=== PATIENT | male | born 1960 | race Caucasian/White ===

== ENCOUNTER 2019-08-24 13:30 | Outpatient (RCR) | payer OTHER, SELFPAY ==
--- NOTE | 2019-06-30 15:33 | PTOPEVAL ---
Thank you for referring this patient to [facility]. Please review, sign, date and return this plan of care CORI. Pt referred to therapy due to left shoulder pain and dysfunction. He requires additional skilled therapy to address impairments, provide skilled teaching and HEP. Recommend PT 2x/wk x 6 wk. I agree with and certify that the following plan of care is medically necessary. Referring Physician Date Attending Provider: PHYSICIAN NOT ON STAFF Referring Provider: ABIMBOLA Mckeon *PT Outpatient Evaluation Start: 06/30/19 14:27 Freq: Status: Active Protocol: Document 06/30/19 14:30 CAP (Rec: 06/30/19 15:12 [facility] [email or web address]) Therapy Assessment Status Assessment Status Assessment Status Evaluation Outpatient Past Medical History Cardiovascular History Hx Hypertension Yes Musculoskeletal History Hx Other Musculoskeletal Disorders Yes: left shoulder pain Endocrine History Hx Diabetes Yes: neuropathy feet HEENT History Hx Eye Surgery Yes: blind right eye, high pressure of left eye Psychosocial History Hx Anxiety Yes Hx Depression Yes Hx Other Psychiatric Disorders Yes: insomnia Pain History History of Any Previous or Ongoing No Significant History Instance of Pain Evaluation Information Problem Diagnosis left shoulder pain Onset 5-6 months Cause unknown Subjective Information Reports he has had increased Query Text:As Reported By Patient/ left shoulder pain for the Family past 5-6 months. Reports he sleeps on his left side with increased pain in the morning. He has increased pain of the wrist and elbow region, as well as the shoulder. Reports he feels like he has lump at the front of his elbow. Reports pain with wrist motion , which is helped by his magnetic braclett. He reports pain with left shoulder motion. States the pain is like a shocking pain . Reports difficulty with reaching act in all directions . States he has limited his activities due to his vision impairments, medical conditions. He walks his small dog daily. He has an exercise
--- NOTE | 2019-07-30 13:09 | PTOPEVAL ---
Thank you for referring Manolo Becerra to [facility]. Please review, sign, date and return this plan of care CORI. Pt has received 8 PT visits since 06/30/19 to address UE impairments, pain, limited UE range and strength. He is progressing towards his therapy goals and HEP. He requires additional skilled therapy 2x/wk x 3 wk to achieve max potential. I agree with and certify that the following plan of care is medically necessary. Referring Physician Date Attending Provider: PHYSICIAN NOT ON STAFF Referring Provider: Allison Mckeon *PT Outpatient Evaluation Start: 06/30/19 14:27 Freq: Status: Active Protocol: Document 07/30/19 11:01 MARGARITO (Rec: 07/30/19 11:22 [facility] [id number]) Therapy Assessment Status Assessment Status Assessment Status Re-evaluation Outpatient Past Medical History Cardiovascular History Hx Hypertension Yes Musculoskeletal History Hx Other Musculoskeletal Disorders Yes: left shoulder pain Endocrine History Hx Diabetes Yes: neuropathy feet HEENT History Hx Eye Surgery Yes: blind right eye, high pressure of left eye Psychosocial History Hx Anxiety Yes Hx Depression Yes Hx Other Psychiatric Disorders Yes: insomnia Pain History History of Any Previous or Ongoing No Significant History Instance of Pain Evaluation Information Problem Diagnosis left shoulder pain Onset 5-6 months Cause unknown Subjective Information Reports cont pain in the am Query Text:As Reported By Patient/ regardless of the his sleeping Family positions. Reports the radiating symptoms of left UE have improved. Improved tightness and lump of left elbow region. States intermittent of shocking pain of the shoulder with lateral reaching. Denies pain with reaching behind head , but slight pain with reaching behind back. Pain Assessment Timing of Pain Assessment Timing of Pain Assessment Re-assessment Pain Scale Pain Scale Used Numeric (1 - 10) Self Report Pain Assessment Left Shoulder(s) Reported Pain Level 0 Pain Description Aching,Sharp Pain Frequency Chronic,Intermittent Greatest Pain Intensity 5 Pain Aggravating Factors Prolonged Position Pain Score Pain Score 0: Self Report Upper Extremity Range of Motion Scapular/ Shoulder Range of Motion Right Scapular: Retraction Hypomobile
--- NOTE | 2019-08-24 14:11 | PTOPEVAL ---
Thank you for referring Manolo Becerra to [facility]. Please review, sign, date and return this plan of care CORI. Pt has received 13 therapy visits from 06/30/19-08/24/19 to address his left shoulder pain. He demonstrates normal shoulder strength and range. Denies any increased pain with daily activities. He reports 0% impairment on the Quick Dash. He is indep with HEP. DC skilled therapy at this time. I agree with and certify that the following plan of care is medically necessary. Referring Physician Date Referring Provider: ABIMBOLA Mckeon PT Discharge Summary *PT Outpatient Evaluation Start: 06/30/19 14:27 Freq: Status: Active Protocol: Document 08/24/19 13:33 MARGARITO (Rec: 08/24/19 13:47 [facility] [email or web address]) Therapy Assessment Status Assessment Status Assessment Status Re-evaluation Evaluation Information Problem Diagnosis left shoulder pain Onset 5-6 months Cause unknown Subjective Information He denies any pain or problems Query Text:As Reported By Patient/ with his left shoulder. Family Denies any numbness or tingling into the left UE/hand region. Denies any problems with use of left UE for daily activities. He reports his depression and anxiety is doing better. Pain Assessment Timing of Pain Assessment Timing of Pain Assessment Re-assessment Pain Scale Pain Scale Used Numeric (1 - 10) Self Report Pain Assessment Left Shoulder(s) Reported Pain Level 0 Pain Score Pain Score 0: Self Report Upper Extremity Range of Motion Scapular/ Shoulder Range of Motion Right Shoulder Flexion - Active 160 Shoulder Extension - Active 55 Shoulder Abduction - Active 165 Shoulder Medial Rotation - Active T 11 Query Text:Reach Behind the Back Shoulder Lateral Rotation - Active T2 Query Text:Reach Behind the Head Scapular/Shoulder Range of Motion Pain,Soft Tissue Restriction Limitations Scapular/Shoulder Range of Motion decreased inf Gh glide Comments decresed scapulothoracic movement Left Shoulder Flexion - Active 165 Shoulder Extension - Active 55 Shoulder Abduction - Active 168 Shoulder Medial Rotation - Active T 11 Query Text:Reach Behind the Back Shoulder Lateral Rotation - Active T2 Query Text:Reach Behind the Head Upper Extremity Muscle Strength Testing Scapular/Shoulder Left Shoulder Elevation - Upper Trapezius 5 Normal Scapular Retraction - Rhomboid 2+ Poor + Scapular Retraction - Middle Trapezius 2+ Poor + Shoulder Flexi
== END 2019-08-24 14:26 | disposition home or self-care (01) ==
LOC: ANHPT 13:30
DX: M25.519 Pain in unspecified shoulder (principal)
CPT/HCPCS: 97110; 97140; 97162

== ENCOUNTER 2020-07-11 17:23 | Emergency (ER) | payer OTHER, SELFPAY ==
--- NOTE | ~2020-07-11 | XR_ITS ---
EXAMINATION: XR chest 1V portable DATE: 07/11/2020 22:03 INDICATION: Leg edema. TECHNIQUE: A single frontal view of the chest was obtained. COMPARISON: None. FINDINGS: There is mild atelectasis in left lower lung zone. No pleural effusion or pneumothorax. The heart size is normal. IMPRESSION: 1. Mild atelectasis in left lower lung zone. Reviewed, dictated and finalized at location A.
[2020-07-11 18:03] VITALS: BP 214/87; PULSE 97; RESP 16; TEMP 36.6; O2SAT 97
[2020-07-11 18:18] LABS: Basophils Percent Auto 0.4 % (0.2-1.2); Eosinophils Absolute Auto 0.3 K/mm3 (0-0.3); Eosinophils Percent Auto 2.7 % (0-4.4); Hematocrit 39.2 % (42.0-52.0); Hemoglobin 13.1 g/dL (14.0-18.0); Immature Granulocyte Absolute 0.03 K/mm3 (0.00-0.031); Immature Granulocyte Percent A 0.3 % (0-0.5); Lymphocytes Absolute Auto 1.74 K/mm3 (0.9-3.2); Lymphocytes Percent Auto 17.3 % (18.3-44.2); Mean Corpuscular HGB Conc 33.4 g/dl (32-36); Mean Corpuscular Hemoglobin 29.8 pg (26-34); Mean Corpuscular Volume 89.1 fl (80-100); Mean Platelet Volume 9.4 fl (7.4-10.4); Monocytes Absolute Auto 0.8 K/mm3 (0.1-0.6); Neutrophils Absolute Auto 7.2 K/mm3 (1.3-6.7); Neutrophils Percent Auto 71.3 % (45.5-73.1); Platelet Count Result 272 k/mm3 (150-375); Red Cell Distribution Width 12.9 % (11.5-14.5)
[2020-07-11 18:32] LABS: Alanine Aminotransferase 30 U/L (4-50); Albumin Level 3.9 g/dL (3.5-5.1); Alkaline Phosphatase 60 U/L (38-126); Anion Gap 5 mmol/L (8-16); Aspartate Amino Transferase 32 U/L (17-59); Bilirubin,Total 0.2 mg/dL (0.2-1.3); Blood Urea Nitrogen 17 mg/dL (9-20); Calcium 8.8 mg/dL (8.4-10.2); Carbon Dioxide 28 mmol/L (22-30); Chloride 106 mmol/L (98-107); Estimated CRCL calculation 89 ml/min; Estimated Glomerular Filt Rate > 60; Glucose 107 mg/dL (75-110); Potassium 3.6 mmol/L (3.4-5.0); Sodium 139 mmol/L (137-145)
[2020-07-11 18:41] LABS: NT Pro B Type Natriuretic Pept 1070 PG/ML (5-100)
--- NOTE | 2020-07-11 21:38 | ED.GENADULT ---
HPI - General Adult General Chief complaint: Extremity Problem,Nontraumatic Stated complaint: LOWER EXTREMITY SWELLING Time Seen by Provider: 07/11/20 21:36 Source: patient and RN notes reviewed Mode of arrival: ambulatory Limitations: no limitations History of Present Illness HPI narrative: Patient is 59 years old white male presented to the ED because of swelling of the lower extremities for months. Was seen by his family physician today and was told that he have stage III leg edema. Patient denies any fever, chills, nausea, vomiting, shortness of breath, chest pain, back pain, headache. Patient does not work, sit on the couch / for years. Review of Systems Review of Systems: Narrative: CONSTITUTIONAL: Denies fever, chills, or sweats. EYES: Denies visual changes, redness, or discharge. ENT: Denies rhinorrhea, congestion, sore throat, or otalgia. CARDIOVASCULAR: Denies chest pain, palpitations, or edema. RESPIRATORY: Denies cough or dyspnea. GASTROINTESTINAL: Denies abdominal pain, nausea, vomiting, or diarrhea. GENITOURINARY: Denies dysuria or hematuria. SKIN: 3+ edema bilaterally MUSCULOSKELETAL: Denies back pain, joint pain, or myalgia. NEUROLOGIC: Denies headache, numbness, or weakness. PSYCHIATRIC: Denies anxiety or depression. Exam Narrative: Exam Narrative: General appearance: Well-developed, well-nourished Skin: Normal color, 2+ edema up to the knees bilaterally Head: Normocephalic, nontraumatic Eyes: Clear conjunctiva ENT: Oropharynx normal, ears normal, nose normal Neck: Supple, nontender Chest and respiratory: Airway patent, no respiratory distress, no accessory muscle use Heart: Regular rate/rhythm Abdomen: Soft, nontender, no organomegaly, quiet bowel sounds Vascular: Normal peripheral pulses, normal capillary refill. Musculoskeletal: Normal range of motion, nontender back Neurologic: Alert and oriented ?3, LOGISTICS LEAD is normal as tested, no gross motor deficit Course Course Emergency Course: Stable Vital Signs Vital signs: Vital Signs Temperature 36.6 C 07/11/20 18:03 Pulse Rate 97 07/11/20 18:03 Respiratory Rate 16 07/11/20 18:03 Blood Pressure 214/87 H 07/11/20 18:03 Pulse Oximetry 97 07/11/20 18:03 Temperature 36.6 C 07/11/20 18:03 Pulse Rate 97 07/11/20 18:03 Respiratory Rate 16 07/11/20 18:03 Blood Pressure 214/87 H 07/11/20 18:03 Pulse Oximetry 97 07/11/20 18:03 Medical Decision Making [facility] Narrative Medical decision making narrative: Patient presents with left lower extremity edema for months. Today is not different than 1 week ago, was seen by his family physician today. Patient came for a second opinion. Labs, chest x-ray ordered. Further plan to follow. Patient blood pressure is elevated on arrival to the emergency room, patient reported that he been keeping his leg elevated and using compression stocking intermittently. On exam patient does not have any compression stocking, last use months ago My plan to start patient on small dose of hydrochlorothiazide and to advise him to keep his leg elevated and use compression stocking constantly Differential Diagnosis Differential Diagnosis: CHF, liver failure, kidney failure, dependent edema, hypoproteinemia Vital Signs Vital Signs: Vital Signs Temperature 36.6 C 07/11/20 18:03 Pulse Rate 97 07/11/20 18:03 Respiratory Rate 16 07/11/20 18:03 Blood Pressure 214/87 H 07/11/20 18:03 Pulse Oximetry 97 07/11/20 18:03 Temperature 36.6 C 07/11/20 18:03 Pulse Rate 97 07/11/20 18:03 Respiratory Rate 16 07/11/20 18:03 Blood Pressure 214/87 H 07/11/20 18:03 Pulse Oximetry 97 07/11/20 18:03 Lab Data Result diagrams:
--- NOTE | 2020-07-11 21:52 | PC.NURSE ---
patient refusing to answer assessment questions or to have vital signs taken.
== END 2020-07-11 23:00 | disposition left against medical advice (07) ==
PROVIDERS: Family Medicine; Emergency Provider Emergency Medicine; PCP Emergency Medicine
DX: R60.0 Localized edema (principal)
CPT/HCPCS: 36415; 71045; 80053; 83880; 85025; 99283

== ENCOUNTER 2020-11-04 09:40 | Outpatient (CLI) | payer OTHER, SELFPAY ==
--- NOTE | ~2020-11-04 | CT_ITS ---
EXAMINATION: CT lung screening DATE: 11/04/2020 10:12 INDICATION: Personal history of nicotine dependence, prior smoker with 30 pack year history TECHNIQUE: Computed tomography (CT) of the chest was performed without intravenous contrast. The dose -length product (DLP) was 229.50 mGy-cm. Automated exposure control and iterative reconstruction tech [employer] were employed. COMPARISON: None FINDINGS: There is mild emphysema. No suspicious pulmonary nodule is identified. The lungs are free o f acute opacities. There is no pleural effusion or pneumothorax. No pathologically enlarged thoracic lymph nodes are identified. The heart size is normal. Calcified coronary artery atherosclerosis is no lex. There is mild thoracic spondylosis. Punctate calcifications in an otherwise normal spleen likely represent healed granulomatous disease. IMPRESSION: 1. Lung-RADS category 1: Negative. Continue annual screening with noncontrast low-dose chest CT in 12 months. Reviewed, dictated and finalized at location B. IMPRESSION: 1. Lung-RADS category 1: Negative. Continue annual screening with noncontrast l ow-dose chest CT in 12 months.
== END 2020-11-04 09:41 | disposition home or self-care (01) ==
PROVIDERS: PCP Emergency Medicine; Visit Provider Emergency Medicine
DX: Z12.2 Encounter for screening for malignant neoplasm of respiratory organs (principal); Z87.891 Personal history of nicotine dependence
CPT/HCPCS: 71271

== ENCOUNTER 2020-11-24 18:52 | Emergency (ER) | payer OTHER, SELFPAY ==
[2020-11-24 19:07] VITALS: BP 214/91; PULSE 78; RESP 20; TEMP 36.8; O2SAT 99
--- NOTE | 2020-11-24 19:19 | ED.EYEPROB ---
HPI - Eye Problem General Chief complaint: Eye Problems Stated complaint: Blisters on eye Time Seen by Provider: 11/24/20 19:19 Source: patient and RN notes reviewed Mode of arrival: ambulatory Limitations: no limitations History of Present Illness HPI Narrative: 60-year-old male presents with concern for right eye watering, discomfort, blisters . Reports he has been seeing an canvassing manager for quite some vision for this problem for the last several months, is being treated by that doctor for this problem. He reports he had a temporary lens placed in the right eye, and is concerned the lens may have come out. He reports he lost vision in his right eye months ago, which his canvassing manager is aware. He reports excessive watery drainage, redness, discomfort. He reports he symptoms have been present for several weeks. In a separate complaint he reports an itchy rash under his left armpit from using a body spray MD chief complaint: other (Eye blisters) Related Data Home Medications Medication Instructions Recorded Confirmed brimonidine 2 drp OPHTHALMIC (EYE) DIRECTED 11/24/20 11/24/20 dorzolamide-timolol 2 drp OPHTHALMIC (EYE) DIRECTED 11/24/20 11/24/20 ezetimibe 10 mg PO DAILY 11/24/20 11/24/20 hydrochlorothiazide 25 mg PO DAILY 11/24/20 11/24/20 insulin glargine [Lantus Solostar 18 unit SUBCUT DIRECTED 11/24/20 11/24/20 U-100 Insulin] losartan 100 mg PO DAILY 11/24/20 11/24/20 prednisolone acetate 1 drp OPHTHALMIC (EYE) DIRECTED 11/24/20 11/24/20 Allergies Allergy/AdvReac Type Severity Reaction Status Date / Time No Known Allergies Allergy Verified 11/24/20 19:14 Review of Systems Review of Systems: CONSTITUTIONAL: Denies malaise, chills, sweats, or fever. EYES: Denies new visual changes. Reports copious right eye watery drainage, irritation and redness ENT: Denies rhinorrhea, congestion, sinus pain, otalgia or sore throat. SKIN: Reports redness around the skin of both eyes. Also reports an itchy rash under his left armpit NEUROLOGIC: Denies headache. All systems reviewed & are unremarkable except as noted in HPI and below PMFSH Comments At time of signature, agree with nursing past medical, surgical, social and family history. There is no relevant family history pertinent to the presenting complaint Exam Narrative: GENERAL: Well-appearing, well-nourished, and in no acute distress. HEAD: Normocephalic, atraumatic. EYES: PERRLA. Conjunctivae and sclera injected bilaterally, excessive watery drainage in the right eye. No nystagmus. Mild conjunctive and sclera injection in the left eye ENT: Nares clear. Mucous membranes moist. NECK: Supple. CHEST: No respiratory distress. Speaks in full sentences. HEART: Regular rate and rhythm. SKIN: Warm, dry. Erythematous skin surrounding bilateral eyes. Patchy erythema in the left axilla NEURO: Alert and oriented x3. No focal deficits. PSYCH: Normal mood and affect Course Course Emergency Course: [place] with patient importance of continuance of care with his current canvassing manager for this problem, discussed following up tomorrow with the canvassing manager for treatment, will try a short course of steroids to help with inflammation. Patient is aware of, understands and agrees to treatment plan. Anticipatory guidance given. Patient agrees to follow-up as directed and is aware of reasons to seek care at the emergency department. Portions of this record may have been created with voice recognition software Vital Signs Vital signs: Vital Signs Temperature 98.3 F 11/24/20 19:07 Pulse Rate 78 11/24/20 19:07 Respiratory Rate 20 11/24/20 19:07 Blood Pressure 214/91 H 11/24/20 19:07 Pulse Oximetry 99 11/24/20 19:07 Temperature 98.3 F 11/24/20 19:07 Pulse Rate 78 11/24/20 19:07 Respiratory Rate 20 11/24/20 19:07 Blood Pressure 214/91 H 11/24/20 19:07 Pulse Oximetry 99 11/24/20 19:07 Reviewed. MDM - Eye Problem MDM Narrati
[2020-11-24] MEDS: predniSONE 20 MG TABLET 60 MG PO (19:32)
== END 2020-11-24 19:35 | disposition home or self-care (01) ==
PROVIDERS: Emergency Provider Nurse Practitioner; PCP Emergency Medicine
DX: H57.9 Unspecified disorder of eye and adnexa (principal); R21 Rash and other nonspecific skin eruption; I10 Essential (primary) hypertension; H40.9 Unspecified glaucoma
CPT/HCPCS: 99203; G0463; J7512

== ENCOUNTER 2021-03-21 14:45 | Outpatient (CLI) | payer OTHER, SELFPAY ==
--- NOTE | ~2021-03-21 | XR_ITS ---
EXAMINATION: XR chest 2V DATE: 03/21/2021 14:59 INDICATION: Cough TECHNIQUE: PA and lateral views of the chest were obtained. COMPARISON: Chest radiograph dated 07/11/[address] dated 11/04/2020 FINDINGS: Mild linear atelectasis at the bilateral lower lung zones. Bronchial wall thickening in the infrahila r regions. No pleural effusion or pneumothorax. The cardiomediastinal silhouette is normal. IMPRESSION: 1. Mild infrahilar bronchial wall thickening which could be seen with bronchitis or reactive airway d isease/asthma. Reviewed, dictated and finalized at location B. OROLOGIST LIAISON IMPRESSION: 1. Mild infrahilar bronchial wall thickening which could be seen with bronchiti s or reactive airway disease/asthma.
== END 2021-03-21 14:46 | disposition home or self-care (01) ==
LOC: ANHIMG 14:46
PROVIDERS: PCP Emergency Medicine; Visit Provider Emergency Medicine
DX: R05.9 Cough, unspecified (principal); R91.8 Other nonspecific abnormal finding of lung field
CPT/HCPCS: 71046

== ENCOUNTER 2021-04-19 08:33 | Outpatient (CLI) | payer OTHER, SELFPAY ==
--- NOTE | 2021-04-19 09:06 | ECHO_ITS ---
Patient Info Name: Manolo Becerra Age: 60 years : 1960 Gender: Male Ht: 71 in Wt: 245 lbs BSA: 2.40 m2 HR: 72 bpm BP: 216 / 111 mmHg Technical Quality: Good Exam Date: 04/19/2021 9:25 AM Exam Location: [facility] Patient Status: Outpatient Admit Date: 04/19/2021 Staff Ordering Physician: Shiraz Lerma DO New Home Sales Consultant: Ba García RDCS, RT Attending Provider: Shiraz Lerma DO Referring Physician: Florentin GOMEZ; Exam Type: CA echo doppler color flow Study Info Indications R06.00 - Dyspnea, unspecified Complete two-dimensional, color flow and Doppler transthoracic echocardiogram is performed. Strain analysis performed. Summary 1. Complete two-dimensional, color flow and Doppler transthoracic echocardiogram is performed. 2. Left ventricular chamber dimension is mildly enlarged. 3. Left ventricular systolic function is normal, estimated at 55-60%. 4. There is moderately increased left ventricular wall thickness. 5. The left ventricular diastolic function is grade I diastolic dysfunction. 6. E/e' 19 is elevated. 7. Global longitudinal strain is abnormal at -8.2%. 8. Left atrial chamber dimension is mildly enlarged. 9. There is mild aortic valve sclerosis. 10. The mitral valve has moderately calcified posterior annulus. 11. There is mild mitral valve regurgitation. 12. Dilated inferior vena cava with >50% collapse upon inspiration consistent with elevated right atrial pressure, 10 mmHg. Left Ventricle E/e' 19 is elevated. Global longitudinal strain is abnormal at -8.2%. Left ventricular chamber dimension is mildly enlarged. Left ventricular systolic function is normal, estimated at 55-60%. There is moderately increased left ventricular wall thickness. The left ventricular diastolic function is grade I diastolic dysfunction. Right Ventricle Right ventricular systolic function is normal and with normal TAPSE 2.2 cm. Right ventricular chamber dimension is normal. Left Atria Left atrial chamber dimension is mildly enlarged. Right Atria Right atrial chamber dimension is normal. Aortic Valve The aortic valve is trileaflet. There is mild aortic valve sclerosis. There is no aortic valve stenosis. There is no aortic valve regurgitation. Pulmonic Valve There is no pulmonic regurgitation. Mitral Valve The mitral valve has moderately calcified posterior annulus. There is no mitral valve stenosis. There is mild mitral valve regurgitation. Tricuspid Valve There is no tricuspid valve regurgitation. Pericardium/Pleural There is no pericardial effusion. Inferior Vena Cava Dilated inferior vena cava with >50% collapse upon inspiration consistent with elevated right atrial pressure, 10 mmHg. Aorta The aortic root size at the sinus of Valsalva is normal. Left Ventricular Outflow Tract Name Value Normal LVOT 2D LVOT Diameter 2.1 cm LVOT Doppler LVOT Peak Gradient 4 mmHg LVOT Mean Gradient 3 mmHg LVOT VTI 23 cm LVOT VTI/AV VTI Ratio 0.8 LVOT Randy
== END 2021-04-19 08:34 | disposition home or self-care (01) ==
PROVIDERS: PCP Emergency Medicine; Visit Provider Internal Medicine Cardiovascular Disease
DX: R06.00 Dyspnea, unspecified (principal); I34.0 Nonrheumatic mitral (valve) insufficiency
CPT/HCPCS: 93306

== ENCOUNTER 2022-04-06 07:25 | Emergency (ER) | payer OTHER, SELFPAY ==
[2022-04-06 07:35] VITALS: BP 186/84; PULSE 85; RESP 18; TEMP 36.4; O2SAT 100
--- NOTE | 2022-04-06 08:20 | ED.LOWEXIN ---
HPI - Extremity Injury (Lower) General Chief Complaint: Extremity Injury, Lower Stated Complaint: leg fatigue Time Seen by Provider: 04/06/22 07:34 History of Present Illness HPI Narrative: Patient is a 61-year-old male with a history of hypertension, hyperlipidemia, diabetes, tobacco use presenting with chronic leg pain. Patient states that he has had a lot of chronic leg pain for at least the last year. States that it is a burning pain that is worsened with exertion. States that his legs also feel very tired. States that he has saw a vascular surgeon earlier this year who did not offer any surgical intervention. Patient states that he recently saw his PCP who advised that he follow-up with a different vascular surgeon at [place]. States he has been unable to do so so far. 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 He states that the pain is unchanged from the last several months. He denies fevers, numbness or weakness, chest pain, shortness of breath, abdominal pain, nausea or vomiting, new leg swelling. Related Data Home Medications Medication Instructions Recorded Confirmed blood sugar diagnostic (OneTouch #10 ea 08/19/19 11/13/21 Ultra Blue Test Strip) glipizide 5 mg tablet 5 mg PO BID 08/19/19 11/13/21 lancets 30 gauge (TRUEplus Lancets) #25 ea 08/19/19 11/13/21 omega 4-cmk-tiv-fish oil 1,000 mg 1 cap PO BID 12/02/19 11/13/21 (120 mg-180 mg) capsule (Fish Oil) acetaminophen 500 mg capsule 500 mg PO Q6H PRN 05/12/20 11/13/21 brimonidine 0.2 % eye drops 1 drp EACH EYE Q8H 05/12/20 11/13/21 carvedilol 25 mg tablet 25 mg PO Q12H 05/12/20 11/13/21 cholecalciferol (vitamin D3) 1,250 1,250 mcg PO WEEKLY 05/12/20 11/13/21 mcg (50,000 unit) capsule ginkgo biloba 40 mg tablet 40 mg PO TID 05/12/20 11/13/21 brimonidine 0.2 % eye drops 2 drp ophthalmic (eye) DIRECTED 11/24/20 11/13/21 dorzolamide 22.3 mg-timolol 6.8 2 drp ophthalmic (eye) DIRECTED 11/24/20 11/13/21 mg/mL eye drops ezetimibe 10 mg tablet 10 mg PO DAILY 11/24/20 11/13/21 hydrochlorothiazide 25 mg tablet 25 mg PO DAILY 11/24/20 11/13/21 insulin glargine 100 unit/mL (3 18 unit subcut DIRECTED 11/24/20 11/13/21 mL) subcutaneous pen (Lantus Solostar U-100 Insulin) losartan 100 mg tablet 100 mg PO DAILY 11/24/20 11/13/21 prednisolone acetate 1 % eye 1 drp ophthalmic (eye) DIRECTED 11/24/20 11/13/21 drops,suspension Allergies Allergy/AdvReac Type Severity Reaction Status Date / Time No Known Allergies Allergy Verified 04/06/22 07:42 Review of Systems Review of Systems: All systems reviewed & are unremarkable except as noted in HPI and below PMFSH Past Medical History Medical History Anxiety Depression Diabetes mellitus Glaucoma Hyperlipidemia Hypertension Family History Family History Mother Diabetes mellitus Grandparent No problems noted. Social History Social History Smoking packs per day: 0.5 Smoking cigarettes per day: 10.0 Years smoked: 40 Smoking pack-years: 20.00 Smoking status: Current every day smoker Tobacco type: cigarettes Second hand tobacco smoke exposure: Yes Alcohol intake: never Substance use: never Exam Narrative: GENERAL: Well-appearing, well-nourished, and in no acute distress. HEAD: Normocephalic, atraumatic. EYES: PERRLA and EOMI. ENT: Nares clear, no rhinorrhea or epistaxis. Mucous membranes moist. NECK: Supple. CHEST: Clear to auscultation. No respiratory distress. HEART: Regular rate and rhythm. No murmur heard. Normal peripheral pulses. ABDOMEN: Soft, nontender, nondistended, normal active bowel sounds. EXTREM
--- NOTE | 2022-04-06 08:33 | PC.NURSE ---
pt ambulatory without difficulty to and from restroom.
== END 2022-04-06 08:40 | disposition home or self-care (01) ==
PROVIDERS: Emergency Provider Emergency Medicine; PCP Emergency Medicine
DX: M79.605 Pain in left leg (principal); M79.604 Pain in right leg; G89.29 Other chronic pain; E78.5 Hyperlipidemia, unspecified; I10 Essential (primary) hypertension; E11.40 Type 2 diabetes mellitus with diabetic neuropathy, unspecified; E11.39 Type 2 diabetes mellitus with other diabetic ophthalmic complication; H42 Glaucoma in diseases classified elsewhere; F17.210 Nicotine dependence, cigarettes, uncomplicated; Z79.4 Long term (current) use of insulin; Z79.84 Long term (current) use of oral hypoglycemic drugs
CPT/HCPCS: 99281

== ENCOUNTER 2022-04-06 09:52 | Emergency (ER) | payer OTHER, SELFPAY ==
[2022-04-06 10:11] VITALS: BP 164/65; PULSE 72; RESP 16; TEMP 36.6; O2SAT 100
[2022-04-06] MEDS: ACETAMINOPHEN 500 MG TABLET 1000 MG PO (13:03)
--- NOTE | 2022-04-06 13:22 | PC.NURSE ---
pedal pulses doppled in each leg. pulses audible on each foot. provider aware
[2022-04-06 13:23] LABS: Basophils Absolute Auto 0.1 K/mm3 (0.0-0.1); Basophils Percent Auto 0.8 % (0.2-1.2); Eosinophils Absolute Auto 0.2 K/mm3 (0-0.3); Eosinophils Percent Auto 2.7 % (0-4.4); Hematocrit 41.9 % (42.0-52.0); Hemoglobin 13.9 g/dL (14.0-18.0); Immature Granulocyte Absolute 0.06 K/mm3 (0.00-0.031); Immature Granulocyte Percent A 0.8 % (0-0.5); Lymphocytes Absolute Auto 2.19 K/mm3 (0.9-3.2); Lymphocytes Percent Auto 28.3 % (18.3-44.2); Mean Corpuscular HGB Conc 33.2 g/dl (32-36); Mean Corpuscular Hemoglobin 30.3 pg (26-34); Mean Corpuscular Volume 91.5 fl (80-100); Mean Platelet Volume 9.8 fl (7.4-10.4); Monocytes Absolute Auto 0.6 K/mm3 (0.1-0.6); Monocytes Percent Auto 7.7 % (2.6-8.5); Neutrophils Absolute Auto 4.6 K/mm3 (1.3-6.7); Neutrophils Percent Auto 59.7 % (45.5-73.1); Platelet Count Result 260 k/mm3 (150-375); Red Blood Count 4.58 M/mm3 (4.6-6.20); Red Cell Distribution Width 13.1 % (11.5-14.5); White Blood Count 7.8 K/mm3 (4.5-10.0)
--- NOTE | 2022-04-06 13:24 | ED.EXTPRO ---
HPI - Extremity Problem General Chief complaint: Extremity Problem,Nontraumatic Stated complaint: wants legs re-evaluated Time Seen by Provider: 04/06/22 11:37 Source: patient Mode of arrival: ambulatory Limitations: no limitations History of Present Illness HPI Narrative: This is a 61 year old male that presents to the ER for chronic leg pain. No recent injury or trauma. Worsening over the last couple of months. Reports diffuse leg pain that is better with rest. He has seen a vascular surgeon for this within the last month. No vascular surgery needed. He is a daily smoker. Also has history of chronic kidney disease and diabetes mellitus. Requesting we draw outpatient blood work that he is due for. He has not been taking anything for his pain. He is currently looking for a primary care doctor. Denies fever, erythema, edema, weakness, or numbness. Related Data Home Medications Medication Instructions Recorded Confirmed blood sugar diagnostic (OneTouch #10 ea 08/19/19 11/13/21 Ultra Blue Test Strip) glipizide 5 mg tablet 5 mg PO BID 08/19/19 11/13/21 lancets 30 gauge (TRUEplus Lancets) #25 ea 08/19/19 11/13/21 omega 2-mdj-crn-fish oil 1,000 mg 1 cap PO BID 12/02/19 11/13/21 (120 mg-180 mg) capsule (Fish Oil) acetaminophen 500 mg capsule 500 mg PO Q6H PRN 05/12/20 11/13/21 brimonidine 0.2 % eye drops 1 drp EACH EYE Q8H 05/12/20 11/13/21 carvedilol 25 mg tablet 25 mg PO Q12H 05/12/20 11/13/21 cholecalciferol (vitamin D3) 1,250 1,250 mcg PO WEEKLY 05/12/20 11/13/21 mcg (50,000 unit) capsule ginkgo biloba 40 mg tablet 40 mg PO TID 05/12/20 11/13/21 brimonidine 0.2 % eye drops 2 drp ophthalmic (eye) DIRECTED 11/24/20 11/13/21 dorzolamide 22.3 mg-timolol 6.8 2 drp ophthalmic (eye) DIRECTED 11/24/20 11/13/21 mg/mL eye drops ezetimibe 10 mg tablet 10 mg PO DAILY 11/24/20 11/13/21 hydrochlorothiazide 25 mg tablet 25 mg PO DAILY 11/24/20 11/13/21 insulin glargine 100 unit/mL (3 18 unit subcut DIRECTED 11/24/20 11/13/21 mL) subcutaneous pen (Lantus Solostar U-100 Insulin) losartan 100 mg tablet 100 mg PO DAILY 11/24/20 11/13/21 prednisolone acetate 1 % eye 1 drp ophthalmic (eye) DIRECTED 11/24/20 11/13/21 drops,suspension Allergies Allergy/AdvReac Type Severity Reaction Status Date / Time No Known Allergies Allergy Verified 04/06/22 07:42 Review of Systems Review of Systems: CONSTITUTIONAL: Denies fever CARDIOVASCULAR: Denies edema. SKIN: Denies rash MUSCULOSKELETAL: Reports joint pain, and myalgia. NEUROLOGIC: Denies numbness, or weakness. All systems reviewed & are unremarkable except as noted in HPI and below PMFSH Past Medical History Medical History Anxiety Depression Diabetes mellitus Glaucoma Hyperlipidemia Hypertension Family History Family History Mother Diabetes mellitus Grandparent No problems noted. Social History Social History Smoking packs per day: 0.5 Smoking cigarettes per day: 10.0 Years smoked: 40 Smoking pack-years: 20.00 Smoking status: Current every day smoker Tobacco type: cigarettes Second hand tobacco smoke exposure: Yes Alcohol intake: never Substance use: never Exam Narrative: GENERAL: Well-appearing, well-nourished, and in no acute distress. HEAD: Normocephalic, atraumatic. EYES: EOMI. CHEST: Clear to auscultation. No respiratory distress. No wheezes rales or rhonchi HEART: Regular rate and rhythm. No murmur heard. Normal peripheral pulses. EXTREMITIES: Normal range of motion. No edema, erythema or warmth. Strength equal in bilateral lower extremities (5/5). Extremities are warm and well-perfused with normal capillary refill. Able to Doppler DP pulses bilaterally SKIN: Warm, dry, no rash. NEURO: No focal deficits. Alert and oriented x3. Normal gait PSY
[2022-04-06 13:57] LABS: Alanine Aminotransferase 35 U/L (6-50); Albumin Level 4.4 g/dL (3.5-5.1); Alkaline Phosphatase 55 U/L (38-126); Anion Gap 7 mmol/L (8-16); Aspartate Amino Transferase 30 U/L (17-59); Bilirubin,Total 0.4 mg/dL (0.2-1.3); Blood Urea Nitrogen 22 mg/dL (9-20); Calcium 9.8 mg/dL (8.4-10.2); Carbon Dioxide 33 mmol/L (22-30); Chloride 100 mmol/L (98-107); Estimated CRCL calculation 61 ml/min; Estimated Glomerular Filt Rate > 60; Glucose 202 mg/dL (65-110); Magnesium 1.9 mg/dL (1.6-2.3); Potassium 3.6 mmol/L (3.4-5.0); Sodium 140 mmol/L (137-145)
[2022-04-06 14:15] LABS: Hemoglobin A1C 10.3 % (<5.7)
--- NOTE | 2022-04-06 14:57 | PC.NURSE ---
patient threw discharge at this rn and said that this rn was the most incompetent thing he ever saw. patient demanded that his outpaient labs be drawn prior to leaving. this rn escorted patient to the lab for said blood draw
== END 2022-04-06 15:16 | disposition home or self-care (01) ==
PROVIDERS: Emergency Provider Physician Assistant; PCP Emergency Medicine
DX: M79.605 Pain in left leg (principal); M79.604 Pain in right leg; G89.29 Other chronic pain; E11.40 Type 2 diabetes mellitus with diabetic neuropathy, unspecified; E11.22 Type 2 diabetes mellitus with diabetic chronic kidney disease; I12.9 Hypertensive chronic kidney disease with stage 1 through stage 4 chronic kidney disease, or unspecified chronic kidney disease; N18.9 Chronic kidney disease, unspecified; Z79.84 Long term (current) use of oral hypoglycemic drugs; Z79.4 Long term (current) use of insulin; F17.210 Nicotine dependence, cigarettes, uncomplicated
CPT/HCPCS: 36415; 80053; 83036; 83735; 85025; 99283; A9270

== ENCOUNTER 2022-04-06 15:08 | Outpatient (CLI) | payer OTHER, SELFPAY ==
[2022-04-06 15:48] LABS: Hematocrit 40.9 % (42.0-52.0); Hemoglobin 13.6 g/dL (14.0-18.0); Mean Corpuscular HGB Conc 33.3 g/dl (32-36); Mean Corpuscular Hemoglobin 30.6 pg (26-34); Mean Corpuscular Volume 91.9 fl (80-100); Mean Platelet Volume 9.8 fl (7.4-10.4); Platelet Count Result 264 k/mm3 (150-375); Red Blood Count 4.45 M/mm3 (4.6-6.20); Red Cell Distribution Width 13.1 % (11.5-14.5); White Blood Count 7.8 K/mm3 (4.5-10.0)
[2022-04-06 15:50] LABS: Add Urine Microscopic? YES; Appearance Urine Clear (Clear); Bilirubin Urine Negative (Negative); Blood Urine Negative (Negative); Color Urine Light Yellow (Yellow); Glucose Urine UA 3+ mg/dL (Negative); Ketones Urine Negative (Negative); Leukocyte Esterase Ur Negative LEU/UL (Negative); Nitrate Urine Negative (Negative); Protein Urine Negative (Negative); Specific Grav Ur 1.015 (1.001-1.035); Urobilinogen Urine 0.2 mg/dL (<2.0)
[2022-04-06 16:00] LABS: Alanine Aminotransferase 33 U/L (6-50); Albumin Level 4.1 g/dL (3.5-5.1); Alkaline Phosphatase 52 U/L (38-126); Anion Gap 7 mmol/L (8-16); Aspartate Amino Transferase 30 U/L (17-59); Bilirubin,Total 0.3 mg/dL (0.2-1.3); Blood Urea Nitrogen 21 mg/dL (9-20); Calcium 9.4 mg/dL (8.4-10.2); Carbon Dioxide 32 mmol/L (22-30); Chloride 99 mmol/L (98-107); Cholesterol 248 mg/dL (0-200); Estimated Glomerular Filt Rate 56; Glucose 254 mg/dL (65-110); HDL Direct 34 mg/dL; Potassium 3.5 mmol/L (3.4-5.0); Sodium 138 mmol/L (137-145); Triglycerides 286 mg/dL (<150)
[2022-04-06 16:10] LABS: LDL Cholesterol Direct 139 mg/dL
[2022-04-06 16:13] LABS: Mucus Urine Rare /lpf; RBC Urine 0-2 /hpf (0-2); WBC Urine 0-3 /hpf
[2022-04-06 16:29] LABS: Prostate Specific Antigen 0.4 ng/mL (< OR = 4.0)
[2022-04-06 16:56] LABS: Creatinine Urine 76.6 mg/dL; Total Protein Urine Random 16 mg/dL; Ur Ttl Prot Creatinine Ratio 0.21 mg/mg (0-0.20)
[2022-04-06 17:01] LABS: MALB Creatinine Ratio 58.1 mg/g (0-30); Microalbumin Urine Random 44.5 mg/L (0-16.7)
[2022-04-06 17:12] LABS: Free T4 Free Thyroxine 1.52 ng/mL (0.78-2.19); Vitamin D 25 Hydroxy 38.2 ng/mL
[2022-04-06 17:27] LABS: Hemoglobin A1C 10.3 % (<5.7)
[2022-04-10 13:48] LABS: Albumin 3.8 g/dL (3.8-4.8); Alpha 1 Globulin 0.3 g/dL (0.2-0.3); Alpha 2 Globulin 0.9 g/dL (0.5-0.9); Beta 1 Globulin 0.5 g/dL (0.4-0.6); Gamma Globulin 0.7 g/dL (0.8-1.7); Protein, Total 6.7 g/dL (6.1-8.1)
== END 2022-04-06 15:09 | disposition home or self-care (01) ==
PROVIDERS: PCP Emergency Medicine; Referring Provider Nurse Practitioner; Visit Provider Emergency Medicine
DX: E11.65 Type 2 diabetes mellitus with hyperglycemia (principal)
CPT/HCPCS: 36415; 80053; 80061; 81001; 82043; 82306; 82570; 83036; 84153; 84155; 84156; 84165; 84439; 84443; 85027; 86334

== ENCOUNTER 2022-05-26 17:23 | Emergency (ER) | payer OTHER, SELFPAY ==
--- NOTE | ~2022-05-26 | CT_ITS ---
EXAMINATION: CT soft tissue neck w con DATE: 05/26/2022 19:20 INDICATION: Left jaw and neck swelling TECHNIQUE: Computed tomography (CT) of the neck was performed with 75 mL Omnipaque-350 intravenous co ntrast. Automated exposure control and iterative reconstruction technique were employed. The dose-nhung gth product was 504.85 mGy-cm. COMPARISON: None FINDINGS: The thyroid gland is unremarkable. Left parotid enlargement with surrounding fat stranding, no mass or parotid fluid collection. Mild enlargement of the left submandibular gland. There is no cervical lymphadenopathy. There are no masses identified. The superior mediastinum is unremarkable. Moder ate atherosclerotic plaque involving the aortic arch. The airway is unremarkable. Parapharyngeal an d pre-glottic fat planes are preserved. Calcified plaque with moderate stenosis in the left carotid bifurcation. Ulcerative plaque in the proximal left subclavian artery. Left lens replacement. Right thigh prosthesis. Mild ethmoid and left maxillary mucosal thickening. Peripheral calcified scar an d reticulation in the right upper lung. There is mild cervical spondylosis. IMPRESSION: 1. Left parotiditis. Reviewed, dictated and finalized at location K. [employer] IMPRESSION: 1. Left parotiditis.
--- NOTE | 2022-05-26 16:55 | PC.NURSE ---
Attempted to call patient for triage x 2 but patient is outside.
[2022-05-26 17:13] VITALS: BP 213/82; PULSE 77; RESP 16; TEMP 36.3; O2SAT 97
[2022-05-26 19:07] LABS: Basophils Percent Auto 0.7 % (0.2-1.2); Eosinophils Absolute Auto 0.1 K/mm3 (0-0.3); Eosinophils Percent Auto 2.1 % (0-4.4); Hematocrit 38.9 % (42.0-52.0); Hemoglobin 13.2 g/dL (14.0-18.0); Immature Granulocyte Absolute 0.01 K/mm3 (0.00-0.031); Immature Granulocyte Percent A 0.2 % (0-0.5); Lymphocytes Absolute Auto 1.65 K/mm3 (0.9-3.2); Lymphocytes Percent Auto 26.8 % (18.3-44.2); Mean Corpuscular HGB Conc 33.9 g/dl (32-36); Mean Corpuscular Hemoglobin 30.6 pg (26-34); Mean Platelet Volume 9.7 fl (7.4-10.4); Monocytes Absolute Auto 0.5 K/mm3 (0.1-0.6); Monocytes Percent Auto 8.1 % (2.6-8.5); Neutrophils Absolute Auto 3.8 K/mm3 (1.3-6.7); Neutrophils Percent Auto 62.1 % (45.5-73.1); Platelet Count Result 244 k/mm3 (150-375); Red Blood Count 4.32 M/mm3 (4.6-6.20); Red Cell Distribution Width 12.9 % (11.5-14.5); White Blood Count 6.2 K/mm3 (4.5-10.0)
[2022-05-26 19:14] LABS: Estimated Glomerular Filt Rate > 60
[2022-05-26 19:17] LABS: Anion Gap 6 mmol/L (8-16); Blood Urea Nitrogen 21 mg/dL (9-20); Calcium 9.4 mg/dL (8.4-10.2); Carbon Dioxide 31 mmol/L (22-30); Chloride 104 mmol/L (98-107); Estimated Glomerular Filt Rate > 60; Glucose 204 mg/dL (65-110); Potassium 3.5 mmol/L (3.4-5.0); Sodium 141 mmol/L (137-145)
--- NOTE | 2022-05-26 20:13 | ED.GENADULT ---
HPI - General Adult General Chief complaint: Unspecified Stated complaint: Pain and swelling to the left jaw Time Seen by Provider: 05/26/22 18:05 History of Present Illness HPI narrative: Patient presenting with swelling and pain to his left neck/cheek/jaw, denies any tooth pain as he has no teeth, denies any difficulty swallowing, no fevers/chills. Says that was worse 2 days ago but has been improved. He is taking lemon juice. Related Data Home Medications Medication Instructions Recorded Confirmed blood sugar diagnostic (OneTouch #10 ea 08/19/19 05/16/22 Ultra Blue Test Strip) glipizide 5 mg tablet 5 mg PO BID 08/19/19 05/16/22 lancets 30 gauge (TRUEplus Lancets) #25 ea 08/19/19 05/16/22 omega 1-gtz-ipc-fish oil 1,000 mg 1 cap PO BID 12/02/19 05/16/22 (120 mg-180 mg) capsule (Fish Oil) acetaminophen 500 mg capsule 500 mg PO Q6H PRN 05/12/20 05/16/22 carvedilol 25 mg tablet 25 mg PO Q12H 05/12/20 05/16/22 cholecalciferol (vitamin D3) 1,250 1,250 mcg PO WEEKLY 05/12/20 05/16/22 mcg (50,000 unit) capsule ginkgo biloba 40 mg tablet 40 mg PO TID 05/12/20 05/16/22 brimonidine 0.2 % eye drops 2 drp ophthalmic (eye) DIRECTED 11/24/20 05/16/22 dorzolamide 22.3 mg-timolol 6.8 2 drp ophthalmic (eye) DIRECTED 11/24/20 05/16/22 mg/mL eye drops ezetimibe 10 mg tablet 10 mg PO DAILY 11/24/20 05/16/22 hydrochlorothiazide 25 mg tablet 25 mg PO DAILY 11/24/20 05/16/22 insulin glargine 100 unit/mL (3 18 unit subcut DIRECTED 11/24/20 05/16/22 mL) subcutaneous pen (Lantus Solostar U-100 Insulin) losartan 100 mg tablet 100 mg PO DAILY 11/24/20 05/16/22 prednisolone acetate 1 % eye 1 drp ophthalmic (eye) DIRECTED 11/24/20 05/16/22 drops,suspension Allergies Allergy/AdvReac Type Severity Reaction Status Date / Time No Known Allergies Allergy Verified 05/16/22 13:19 Review of Systems Review of Systems: CONST: No fever. HEENT: Swelling to left cheek and jaw C/V: No chest pain RESP: No cough GI: No nausea or vomiting : No dysuria. M/S: No joint pain. SKIN: No rash. NEURO: [No headache or focal numbness or weakness] PSYCH: [No depression] [facility] Past Medical History Medical History Anxiety Depression Diabetes mellitus Glaucoma Hyperlipidemia Hypertension Family History Family History Mother Diabetes mellitus Grandparent No problems noted. Social History Social History Smoking packs per day: 0.5 Smoking cigarettes per day: 10.0 Years smoked: 40 Smoking pack-years: 20.00 Smoking status: Current every day smoker Tobacco type: cigarettes Second hand tobacco smoke exposure: Yes Alcohol intake: never Substance use: never Living arrangements: with family Exam Narrative: EXAMINATION OF ORGAN SYSTEMS/BODY AREAS: Constitutional: Vital signs per nursing GENERAL:[No acute distress, non-toxic appearing.] HEAD: Normal with no signs of head trauma. EYES: EOMI, conjunctiva normal ENT: Some discomfort/tenderness to palpation left cheek LUNGS: Nonlabored breathing. HEART: [Regular rate and rhythm] EXT: Normal range of motion SKIN: [No rashes or lesions.] NEURO: [Alert and oriented x 3. No gross focal sensory or strength deficits.] PSYCH: Normal affect Course Vital Signs Vital signs: Vital Signs Temperature 97.4 F L 05/26/22 17:13 Pulse Rate 77 05/26/22 17:13 Respiratory Rate 16 05/26/22 17:13 Blood Pressure 213/82 H 05/26/22 17:13 Pulse Oximetry 97 05/26/22 17:13 Oxygen Delivery Room Air 05/26/22 17:13 Temperature 97.4 F L 05/26/22 17:13 Pulse Rate 94 05/26/22 20:44 Respiratory Rate 16 05/26/22 20:44 Blood Pressure 147/86 H 05/26/22 20:44 Pulse Oximetry 97 05/26/22 20:44 Oxygen Delivery Room Air 05/26/22 17:13 Medical Decision Making MDM Narrative Medica
[2022-05-26] MEDS: CLINDAMYCIN 600 MG/D5W 50 ML 600 MG/50 ML PIGGYBACK 100 MG IVPB (20:21)
[2022-05-26 20:44] VITALS: BP 147/86; PULSE 94; RESP 16; O2SAT 97
== END 2022-05-26 20:45 | disposition home or self-care (01) ==
PROVIDERS: Emergency Provider Emergency Medicine; PCP Emergency Medicine
DX: K11.21 Acute sialoadenitis (principal); E11.39 Type 2 diabetes mellitus with other diabetic ophthalmic complication; H42 Glaucoma in diseases classified elsewhere; E78.5 Hyperlipidemia, unspecified; I10 Essential (primary) hypertension; Z79.4 Long term (current) use of insulin; Z79.84 Long term (current) use of oral hypoglycemic drugs; F17.210 Nicotine dependence, cigarettes, uncomplicated
CPT/HCPCS: 36415; 70491; 80048; 85025; 96365; 99284; Q9967

== ENCOUNTER 2022-06-11 18:08 | Emergency (ER) | payer OTHER, SELFPAY ==
[2022-06-11 18:12] VITALS: BP 131/56; PULSE 71; RESP 16; TEMP 36.4; O2SAT 98
--- NOTE | 2022-06-11 20:02 | ED.GENADULT ---
HPI - General Adult General Chief complaint: Unspecified Stated complaint: difficulty swallowing Time Seen by Provider: 06/11/22 19:20 Source: patient, RN notes reviewed and old records reviewed Mode of arrival: ambulatory Limitations: no limitations History of Present Illness HPI narrative: This is a 61 year old male who presents for evaluation of pain with swallowing. Patient states he was placed on antibiotics 1 week ago for swollen gland. After taking the antibiotics for 2 days he developed nausea and vomiting last saturday. He states he had multiple episodes of nausea and vomiting until Saturday. He reports for the past couple of days he has been able to drink sips of water but he is having a difficult time due to painful swallowing. He reports continued nausea. He denies fever, chills. He states he has been in bed for the past 6 days. Related Data Home Medications Medication Instructions Recorded Confirmed blood sugar diagnostic (OneTouch #10 ea 08/19/19 05/16/22 Ultra Blue Test Strip) glipizide 5 mg tablet 5 mg PO BID 08/19/19 05/16/22 lancets 30 gauge (TRUEplus Lancets) #25 ea 08/19/19 05/16/22 omega 2-eqm-oln-fish oil 1,000 mg 1 cap PO BID 12/02/19 05/16/22 (120 mg-180 mg) capsule (Fish Oil) acetaminophen 500 mg capsule 500 mg PO Q6H PRN 05/12/20 05/16/22 carvedilol 25 mg tablet 25 mg PO Q12H 05/12/20 05/16/22 cholecalciferol (vitamin D3) 1,250 1,250 mcg PO WEEKLY 05/12/20 05/16/22 mcg (50,000 unit) capsule ginkgo biloba 40 mg tablet 40 mg PO TID 05/12/20 05/16/22 brimonidine 0.2 % eye drops 2 drp ophthalmic (eye) DIRECTED 11/24/20 05/16/22 dorzolamide 22.3 mg-timolol 6.8 2 drp ophthalmic (eye) DIRECTED 11/24/20 05/16/22 mg/mL eye drops ezetimibe 10 mg tablet 10 mg PO DAILY 11/24/20 05/16/22 hydrochlorothiazide 25 mg tablet 25 mg PO DAILY 08/12/21 02/01/23 insulin glargine 100 unit/mL (3 18 unit subcut DIRECTED 11/24/20 05/16/22 mL) subcutaneous pen (Lantus Solostar U-100 Insulin) losartan 100 mg tablet 100 mg PO DAILY 11/24/20 05/16/22 prednisolone acetate 1 % eye 1 drp ophthalmic (eye) DIRECTED 11/24/20 05/16/22 drops,suspension Allergies Allergy/AdvReac Type Severity Reaction Status Date / Time No Known Allergies Allergy Verified 05/16/22 13:19 Review of Systems Constitutional: Constitutional: Reports fatigue ENT: Reports odynophagia and Reports sore throat Cardiovascular: Cardiovascular: Denies syncope, Denies rapid heart rate, Denies irregular heart rhythm, Denies leg edema and Denies dyspnea Respiratory: Respiratory: Denies chest congestion, Denies hemoptysis, Denies excessive phlegm production and Denies dyspnea Gastrointestinal: Gastrointestinal: Denies abdominal pain, Denies hematochezia, Denies diarrhea, Reports nausea and Reports vomiting Genitourinary: Genitourinary: Denies hematuria, Denies dysuria, Denies penile discharge and Denies testicular pain Musculoskeletal: Musculoskeletal: Denies joint swelling, Denies loss of height and Denies muscle weakness Neurologic: Denies syncope, Denies focal weakness and Denies weakness PMFSH Past Medical History Medical History Anxiety Depression Diabetes mellitus Glaucoma Hyperlipidemia Hypertension Family History Family History Mother Diabetes mellitus Grandparent No problems noted. Social History Social History Smoking packs per day: 0.5 Smoking cigarettes per day: 10.0 Years smoked: 40 Smoking pack-years: 20.00 Smoking status: Current every day smoker Tobacco type: cigarettes Second hand tobacco smoke exposure: Yes Alcohol intake: never Substance use: never Living arrangements: with family Exam Narrative: GENERAL:disheveled and in no acute distress. HEAD: Normocephalic, atraumatic EARS: TM's clear bilaterall
[2022-06-11] MEDS: SODIUM CHLORIDE 0.9% IV 1,000 ML 999 ML IV CONT (20:06)
[2022-06-11] MEDS: ONDANSETRON INJ 4 MG/2 ML VIAL IV PUSH (20:07)
[2022-06-11] MEDS: KETOROLAC 15 MG/ML VIAL (*BKC) IV PUSH (20:07)
[2022-06-11 20:15] LABS: Basophils Absolute Auto 0.1 K/mm3 (0.0-0.1); Basophils Percent Auto 0.6 % (0.2-1.2); Eosinophils Absolute Auto 0.1 K/mm3 (0-0.3); Eosinophils Percent Auto 1.1 % (0-4.4); Hemoglobin 14.4 g/dL (14.0-18.0); Immature Granulocyte Absolute 0.22 K/mm3 (0.00-0.031); Immature Granulocyte Percent A 1.8 % (0-0.5); Lymphocytes Absolute Auto 1.58 K/mm3 (0.9-3.2); Lymphocytes Percent Auto 12.7 % (18.3-44.2); Mean Corpuscular HGB Conc 33.5 g/dl (32-36); Mean Corpuscular Hemoglobin 30.3 pg (26-34); Mean Corpuscular Volume 90.5 fl (80-100); Monocytes Absolute Auto 0.7 K/mm3 (0.1-0.6); Monocytes Percent Auto 5.9 % (2.6-8.5); Neutrophils Absolute Auto 9.7 K/mm3 (1.3-6.7); Neutrophils Percent Auto 77.9 % (45.5-73.1); Platelet Count Result 389 k/mm3 (150-375); Red Blood Count 4.75 M/mm3 (4.6-6.20); White Blood Count 12.5 K/mm3 (4.5-10.0)
[2022-06-11 20:41] LABS: Strep Group A RT-PCR NOT DETECTED (Negative)
[2022-06-11 20:47] LABS: Alanine Aminotransferase 97 U/L (6-50); Albumin Level 3.8 g/dL (3.5-5.1); Alkaline Phosphatase 152 U/L (38-126); Anion Gap 6 mmol/L (8-16); Aspartate Amino Transferase 44 U/L (17-59); Bilirubin,Total 0.9 mg/dL (0.2-1.3); Blood Urea Nitrogen 21 mg/dL (9-20); Calcium 9.6 mg/dL (8.4-10.2); Carbon Dioxide 29 mmol/L (22-30); Chloride 97 mmol/L (98-107); Estimated CRCL calculation 80 ml/min; Estimated Glomerular Filt Rate > 60; Glucose 301 mg/dL (65-110); Potassium 3.8 mmol/L (3.4-5.0); Sodium 132 mmol/L (137-145)
[2022-06-11 20:51] LABS: Influenza A QL RT-PCR Negative (Negative); Influenza B QL RT-PCR Negative (Negative); SARS-CoV-2 RNA PCR Negative
--- NOTE | 2022-06-11 21:15 | PC.NURSE ---
pt being verbally aggressive with this RN and demanding to get his discharge papers. pt states You all are not doing anything for my throat and I'm not leaving here until I see a GI doctor. Told this RN Get this fucking thing out my arm because I am fucking leaving. IV dc'd and attempted to put tape on site but pt refused. explained to pt that he was going to get blood on the floor and he states I don't give a fuck. You'll just have to clean it up you stupid motherfucker. Dr. Skinner aware and states she will come talk to pt.
[2022-06-11 21:48] LABS: Appearance Urine Clear (Clear); Bilirubin Urine Negative (Negative); Blood Urine Negative (Negative); Color Urine Yellow (Yellow); Glucose Urine UA 3+ mg/dL (Negative); Ketones Urine Negative (Negative); Leukocyte Esterase Ur Negative LEU/UL (Negative); Nitrate Urine Negative (Negative); Protein Urine Negative (Negative); Specific Grav Ur 1.033 (1.001-1.035); Urobilinogen Urine 0.2 mg/dL (<2.0)
[2022-06-11 21:59] LABS: Add Urine Microscopic? YES
== END 2022-06-11 22:56 | disposition left against medical advice (07) ==
PROVIDERS: Emergency Provider General Practice; PCP Emergency Medicine
DX: R13.10 Dysphagia, unspecified (principal); E11.65 Type 2 diabetes mellitus with hyperglycemia; Z79.4 Long term (current) use of insulin; F41.9 Anxiety disorder, unspecified; F32.9 Major depressive disorder, single episode, unspecified; I10 Essential (primary) hypertension; Z20.822 Contact with and (suspected) exposure to COVID-19; F17.210 Nicotine dependence, cigarettes, uncomplicated
CPT/HCPCS: 36415; 80053; 81001; 85025; 87636; 87651; 96361; 96374; 96375; 99284; J1885; J2405; J7030

== ENCOUNTER 2022-07-03 14:44 | Outpatient (CLI) | payer OTHER, SELFPAY ==
[2022-07-03 16:38] LABS: Alanine Aminotransferase 38 U/L (6-50); Alkaline Phosphatase 104 U/L (38-126); Anion Gap 9 mmol/L (8-16); Aspartate Amino Transferase 37 U/L (17-59); Bilirubin,Total 0.9 mg/dL (0.2-1.3); Blood Urea Nitrogen 31 mg/dL (9-20); Calcium 9.5 mg/dL (8.4-10.2); Carbon Dioxide 26 mmol/L (22-30); Chloride 98 mmol/L (98-107); Cholesterol 150 mg/dL (0-200); Estimated Glomerular Filt Rate > 60; Glucose 303 mg/dL (65-110); HDL Direct 31 mg/dL; Potassium 3.9 mmol/L (3.4-5.0); Sodium 133 mmol/L (137-145); Triglycerides 161 mg/dL (<150)
[2022-07-03 16:42] LABS: Creatinine Urine 77.5 mg/dL
[2022-07-03 16:47] LABS: MALB Creatinine Ratio 98.2 mg/g (0-30); Microalbumin Urine Random 76.1 mg/L (0-16.7)
[2022-07-03 16:49] LABS: LDL Cholesterol Direct 75 mg/dL
[2022-07-03 17:47] LABS: Free T4 Free Thyroxine 2.07 ng/mL (0.78-2.19)
[2022-07-03 20:30] LABS: Hemoglobin A1C 10.2 % (<5.7)
== END 2022-07-03 14:45 | disposition home or self-care (01) ==
LOC: ANHLAB 14:50
PROVIDERS: PCP Emergency Medicine; Referring Provider Emergency Medicine; Visit Provider Internal Medicine Endocrinology, Diabetes & Metabolism
DX: E78.5 Hyperlipidemia, unspecified (principal); E11.9 Type 2 diabetes mellitus without complications
CPT/HCPCS: 36415; 80053; 80061; 82043; 83036; 84439; 84443

== ENCOUNTER 2022-07-19 19:46 | Emergency (ER) | payer OTHER, SELFPAY ==
[2022-07-19 19:58] VITALS: BP 198/74; PULSE 82; RESP 12; TEMP 36.8; O2SAT 100
--- NOTE | 2022-07-19 19:59 | ED.EYEPROB ---
HPI - Eye Problem General Chief complaint: Eye Problems Stated complaint: Left Eye Irritation Time Seen by Provider: 07/19/22 20:00 Source: patient and RN notes reviewed Mode of arrival: ambulatory Limitations: no limitations History of Present Illness HPI Narrative: 61-year-old male presents with concern for foreign body in left eye. Reports he was working on wood floors using a chop saw when he got wood in his eye 1-1/2 hours prior to arrival. He reports he flushed the eye with water. He has a prosthetic right eye, has an artificial lens under his cornea in the left eye for glaucoma. chief complaint: foreign body Related Data Home Medications Medication Instructions Recorded Confirmed blood sugar diagnostic (OneTouch #10 ea 08/19/19 05/16/22 Ultra Blue Test Strip) lancets 30 gauge (TRUEplus Lancets) #25 ea 08/19/19 05/16/22 omega 8-flm-rjv-fish oil 1,000 mg 1 cap PO BID 12/02/19 05/16/22 (120 mg-180 mg) capsule (Fish Oil) carvedilol 25 mg tablet 25 mg PO Q12H 05/12/20 05/16/22 ginkgo biloba 40 mg tablet 40 mg PO TID 05/12/20 05/16/22 brimonidine 0.2 % eye drops 2 drp ophthalmic (eye) DIRECTED 11/24/20 05/16/22 hydrochlorothiazide 25 mg tablet 25 mg PO DAILY 11/24/20 05/16/22 insulin glargine 100 unit/mL (3 18 unit subcut DIRECTED 11/24/20 05/16/22 mL) subcutaneous pen (Lantus Solostar U-100 Insulin) losartan 100 mg tablet 100 mg PO DAILY 11/24/20 05/16/22 Allergies Allergy/AdvReac Type Severity Reaction Status Date / Time No Known Allergies Allergy Verified 05/16/22 13:19 Review of Systems Review of Systems: CONSTITUTIONAL: Denies malaise, chills, sweats, or fever. EYES: Reports blurry vision. Reports redness, irritation, foreign body sensation in the left ENT: Denies rhinorrhea, congestion, sinus pain, otalgia or sore throat. SKIN: Denies rash or itching. NEUROLOGIC: Denies numbness, weakness, or headache. PSYCHIATRIC: Denies anxiety or depression. All systems reviewed & are unremarkable except as noted in HPI and below PMFSH Past Medical History Medical History Anxiety Depression Diabetes mellitus Glaucoma Hyperlipidemia Hypertension Family History Family History Mother Diabetes mellitus Grandparent No problems noted. Social History Social History Smoking packs per day: 0.5 Smoking cigarettes per day: 10.0 Years smoked: 40 Smoking pack-years: 20.00 Smoking status: Current every day smoker Tobacco type: cigarettes Second hand tobacco smoke exposure: Yes Alcohol intake: never Substance use: never Living arrangements: with family Comments At time of signature, agree with nursing past medical, surgical, social and family history. There is no relevant family history pertinent to the presenting complaint Exam Narrative: GENERAL: Well-appearing, well-nourished, and in no acute distress. HEAD: Normocephalic, atraumatic. EYES: PERRLA and EOMI. No nystagmus. Left sclera and conjunctivae injected, watery drainage, corneal abrasion noted on Wood's lamp exam, see note Upper and lower eyelid unremarkable, no periorbital edema noted ENT: Nares clear, turbinates pink, no rhinorrhea or epistaxis. Mucous membranes moist. TM pearly parra with sharp light reflex bilaterally; no tragal tenderness. NECK: Supple. CHEST: No respiratory distress. Speaks in full sentences. HEART: Regular rate and rhythm. SKIN: Warm, dry, no visible rash. NEURO: Alert and oriented x3. PSYCH: Normal mood and affect Course Course Emergency Course: Patient is aware of diagnosis, understands and agrees to treatment plan. Anticipatory guidance given. Patient agrees to follow-up as directed and is aware of reasons to seek care at the emergency department. Portions of this record may have been created with voice recognition s
[2022-07-19 20:02] VITALS: BP 198/74; PULSE 82; RESP 12; TEMP 36.8; O2SAT 100
== END 2022-07-19 20:19 | disposition home or self-care (01) ==
PROVIDERS: Emergency Provider Nurse Practitioner; PCP Emergency Medicine
DX: S05.02XA Injury of conjunctiva and corneal abrasion without foreign body, left eye, initial encounter (principal); X58.XXXA Exposure to other specified factors, initial encounter; F17.210 Nicotine dependence, cigarettes, uncomplicated; E78.5 Hyperlipidemia, unspecified; I10 Essential (primary) hypertension; E11.39 Type 2 diabetes mellitus with other diabetic ophthalmic complication; H40.9 Unspecified glaucoma; H42 Glaucoma in diseases classified elsewhere; Z79.4 Long term (current) use of insulin
CPT/HCPCS: 99213; A9270; G0463

== ENCOUNTER 2022-08-21 09:51 | Outpatient (CLI) | payer OTHER, SELFPAY ==
--- NOTE | ~2022-08-21 | NM_ITS ---
EXAMINATION: NM nerissa stress w perfusion DATE: 08/21/2022 14:23 CDT INDICATION: Dyspnea TECHNIQUE: Rest images were obtained following intravenous administration of 10.3 mCi Tc99m tetrofosm in (Myoview). The patient was infused intravenously with Lexiscan (regadenoson). Then, 32 mCi Tc99m t etrofosmin (Myoview) was administered intravenously, and stress images were obtained. Data was recons tructed into short axis and horizontal and vertical long axis SPECT images. Gated SPECT images were a lso obtained. COMPARISON: None. FINDINGS: There is no definite reversible or fixed perfusion abnormality to suggest ischemia or infar ction. There is no segmental wall motion abnormality. Left ventricular ejection fraction measures 5 5%. IMPRESSION: 1. No definite ischemia or infarct. 2. Decreased left ventricular ejection fraction measuring 55%. Reviewed, dictated and finalized at location L.
--- NOTE | 2022-08-21 09:54 | EST_ITS ---
Patient Info Name: Manolo Becerra Age: 61 years : 1960 Gender: Male Ht: 71 in Wt: 208 lbs BSA: 2.19 m2 HR: 59 bpm BP: 131 / 56 mmHg Heart Rhythm: Sinus Rhythm Exam Date: 08/21/2022 10:56 AM Exam Location: [facility] Stress Patient Status: Outpatient Admit Date: 08/21/2022 Staff Ordering Physician: Shiraz Lerma DO Attending Provider: Shiraz Lerma DO Exercise Technologist: Princess Suarez CT Exercise Physician: Shiraz Lerma DO Exam Type: CA stress nerissa w NM Study Info Indications R06.09 - Other forms of dyspnea A regadenoson stress test was performed. Summary 1. 1. Negative lexiscan stress test for ischemic ST changes by ECG criteria. 2. 2. Stable hemodynamics throughout the test. 3. 3. Nuclear scan to follow and will be reported separately. Please correlate with it. 4. 4. Patient informed of the above results. Protocol: Lexiscan Stress ECG Details Stage: REST Duration (min): 1 min : 3 sec HR (bpm): 60 SBP (mmHg): 131 DBP (mmHg): 56 Stage: REST Duration (min): 13 min : 8 sec HR (bpm): 59 SBP (mmHg): 131 DBP (mmHg): 56 Stage: STAGE 1 Duration (min): 0 min : 59 sec HR (bpm): 63 SBP (mmHg): 134 DBP (mmHg): 62 Stage: RECOVERY Duration (min): 1 min : 0 sec HR (bpm): 71 SBP (mmHg): 134 DBP (mmHg): 62 Stage: RECOVERY Duration (min): 2 min : 0 sec HR (bpm): 70 SBP (mmHg): 134 DBP (mmHg): 62 Stage: RECOVERY Duration (min): 3 min : 0 sec HR (bpm): 70 SBP (mmHg): 108 DBP (mmHg): 56 Stage: RECOVERY Duration (min): 3 min : 15 sec HR (bpm): 71 SBP (mmHg): 108 DBP (mmHg): 56 Rest HR: 59 bpm Peak HR: 71 bpm Rest Sys BP: 131 mmHg Peak Sys BP: 134 mmHg Max Pred HR: 158 bpm % Max Pred HR: 45 % Target HR: 134 bpm Max RPP: 9,514 bpm*mmHg Termination Reason: Completed protocol Cardiac Symptoms: Shortness of breath Total Time: 1 min : 0 sec Rest Gonzalez BP: 56 mmHg Peak Gonzalez BP: 62 mmHg Total Dose: 0.4 mg Resting ECG Sinus bradycardia. Stress ECG No ST changes. Arrhythmias None. Report Signatures
== END 2022-08-21 09:52 | disposition home or self-care (01) ==
PROVIDERS: PCP Emergency Medicine; Visit Provider Internal Medicine Cardiovascular Disease
DX: R06.00 Dyspnea, unspecified (principal)
CPT/HCPCS: 78452; 93017; A9502; J2785

== ENCOUNTER 2022-11-13 16:49 | Outpatient (CLI) | payer OTHER, SELFPAY ==
[2022-11-13 17:33] LABS: Hematocrit 39.6 % (42.0-52.0); Hemoglobin 13.3 g/dL (14.0-18.0); Mean Corpuscular HGB Conc 33.6 g/dl (32-36); Mean Corpuscular Hemoglobin 29.3 pg (26-34); Mean Corpuscular Volume 87.2 fl (80-100); Mean Platelet Volume 10.8 fl (7.4-10.4); Platelet Count Result 228 k/mm3 (150-375); Red Blood Count 4.54 M/mm3 (4.6-6.20); Red Cell Distribution Width 13.8 % (11.5-14.5); White Blood Count 7.4 K/mm3 (4.5-10.0)
[2022-11-13 17:40] LABS: Appearance Urine Clear (Clear); Bacteria Urine None Seen /hpf; Bilirubin Urine Negative (Negative); Blood Urine Negative (Negative); Color Urine Yellow (Yellow); Glucose Urine UA 3+ mg/dL (Negative); Ketones Urine Negative (Negative); Leukocyte Esterase Ur Negative LEU/UL (NEGATIVE); Nitrate Urine Negative (Negative); Non Pathogenic Casts 0-2; Protein Urine Trace mg/dL (Negative); RBC Urine 0-2 /hpf (0-2); Specific Grav Ur 1.032 (1.001-1.035); Squamous Epithelial Cell Urine None seen /hpf (Few); Urobilinogen Urine 0.2 mg/dL (<2.0); WBC Urine 0-5 /hpf (0-3); pH Urine 6.5 (5.0-9.0)
[2022-11-13 17:52] LABS: Add Urine Microscopic? YES
[2022-11-13 17:56] LABS: LDL Cholesterol Direct 129 mg/dL
[2022-11-13 17:58] LABS: Creatinine Urine 38.2 mg/dL
[2022-11-13 18:02] LABS: MALB Creatinine Ratio 241.9 mg/g (0-30); Microalbumin Urine Random 92.4 mg/L (0-16.7)
[2022-11-13 18:06] LABS: Alanine Aminotransferase 22 U/L (6-50); Albumin Level 4.3 g/dL (3.5-5.1); Alkaline Phosphatase 47 U/L (38-126); Anion Gap 9 mmol/L (8-16); Aspartate Amino Transferase 30 U/L (17-59); Bilirubin,Total 0.5 mg/dL (0.2-1.3); Blood Urea Nitrogen 20 mg/dL (9-20); Calcium 9.4 mg/dL (8.4-10.2); Carbon Dioxide 27 mmol/L (22-30); Chloride 103 mmol/L (98-107); Cholesterol 221 mg/dL (0-200); Estimated Glomerular Filt Rate > 60; Glucose 322 mg/dL (65-110); HDL Direct 39 mg/dL; Potassium 3.6 mmol/L (3.4-5.0); Sodium 139 mmol/L (137-145); Triglycerides 252 mg/dL (<150)
[2022-11-13 18:13] LABS: Prostate Specific Antigen 0.3 ng/mL (< OR = 4.0)
[2022-11-13 19:16] LABS: Free T4 Free Thyroxine 1.74 ng/mL (0.78-2.19); Vitamin D 25 Hydroxy 25.1 ng/mL
[2022-11-13 20:16] LABS: Hemoglobin A1C 11.7 % (<5.7)
== END 2022-11-13 16:50 | disposition home or self-care (01) ==
LOC: ANHLAB 16:53
PROVIDERS: PCP Emergency Medicine; Visit Provider Emergency Medicine
DX: E11.9 Type 2 diabetes mellitus without complications (principal); I10 Essential (primary) hypertension; E78.5 Hyperlipidemia, unspecified
CPT/HCPCS: 36415; 80053; 80061; 81001; 82043; 82306; 83036; 84153; 84439; 84443; 85027

== ENCOUNTER 2023-03-06 14:12 | Emergency (ER) | payer OTHER, SELFPAY ==
[2023-03-06] VITALS (19 sets, daily range): BP systolic 105–173; BP diastolic 49–72; PULSE 57–79; RESP 18; TEMP 36.6; O2SAT 95–100
--- NOTE | ~2023-03-06 | CT_ITS ---
EXAMINATION: CT brain wo con DATE: 03/06/2023 16:28 INDICATION: blurred vision . TECHNIQUE: Computed tomography (CT) of the head was performed without intravenous contrast. The mA wa s adjusted according to patient size. Iterative reconstruction technique was employed. The dose-lengt h product was 681.00 mGy-cm. COMPARISON: None. FINDINGS: No acute intracranial hemorrhage or extra-axial fluid collection. No hydrocephalus, mass, or herniation. No acute ischemic infarct. Unremarkable dural venous sinus attenuation. No acute osseous abnormality. Nodular mucosal thickening in the ethmoid air cells, the remaining aerated spaces are clear. Moderate atrophy and chronic white matter change. Atherosclerotic intracranial calcification. Bilater al lens replacements. Bilateral basal ganglia lacunar infarcts. Right globe prosthesis. IMPRESSION: No acute intracranial process. Reviewed, dictated and finalized at location K. CHUTE RIGGER
--- NOTE | 2023-03-06 14:22 | ECG_ITS ---
Measurements Intervals Jennings Rate: 57 P: 5 VT: 145 QRS: 25 QRSD: 103 T: 77 QT: 416 QTc: 406 Interpretive Statements SINUS BRADYCARDIA NONSPECIFIC T-WAVE ABNORMALITY- HIGH LATERAL LEADS BASELINE ARTIFACT- I, II, AVR, V2 BORDERLINE ECG NO PREVIOUS ECG AVAILABLE FOR COMPARISON Electronically Signed On 03-06-2023 20:04:48 GEAR HOBBER OPERATOR by Shiraz Lerma D.O.
--- NOTE | 2023-03-06 14:27 | PC.NURSE ---
PT A&Ox4. Pt brother states pt called him and told him he had chest pain and that he was going to himself out . Pt denies SI/HI and chest pain upon triage,
[2023-03-06 14:44] LABS: Basophils Absolute Auto 0.1 K/mm3 (0.0-0.1); Basophils Percent Auto 0.6 % (0.2-1.2); Eosinophils Absolute Auto 0.2 K/mm3 (0-0.3); Eosinophils Percent Auto 1.9 % (0-4.4); Hemoglobin 7.8 g/dL (14.0-18.0); Immature Granulocyte Absolute 0.04 K/mm3 (0.00-0.031); Immature Granulocyte Percent A 0.5 % (0-0.5); Lymphocytes Absolute Auto 0.95 K/mm3 (0.9-3.2); Lymphocytes Percent Auto 12.1 % (18.3-44.2); Mean Corpuscular HGB Conc 28.9 g/dl (32-36); Mean Corpuscular Hemoglobin 28.1 pg (26-34); Mean Corpuscular Volume 97.1 fl (80-100); Mean Platelet Volume 9.3 fl (7.4-10.4); Monocytes Absolute Auto 0.4 K/mm3 (0.1-0.6); Monocytes Percent Auto 5.5 % (2.6-8.5); Neutrophils Absolute Auto 6.2 K/mm3 (1.3-6.7); Neutrophils Percent Auto 79.4 % (45.5-73.1); Platelet Count Result 386 k/mm3 (150-375); Red Blood Count 2.78 M/mm3 (4.6-6.20); Red Cell Distribution Width 16.2 % (11.5-14.5); White Blood Count 7.8 K/mm3 (4.5-10.0)
[2023-03-06 14:56] LABS: Alanine Aminotransferase 22 U/L (6-50); Albumin Level 3.7 g/dL (3.5-5.1); Alkaline Phosphatase 62 U/L (38-126); Anion Gap 9 mmol/L (8-16); Aspartate Amino Transferase 28 U/L (17-59); Bilirubin,Total 0.5 mg/dL (0.2-1.3); Blood Urea Nitrogen 14 mg/dL (9-20); Carbon Dioxide 27 mmol/L (22-30); Chloride 104 mmol/L (98-107); Estimated Glomerular Filt Rate 44; Glucose 95 mg/dL (65-110); Potassium 3.7 mmol/L (3.4-5.0); Sodium 140 mmol/L (137-145)
[2023-03-06 14:58] LABS: Glucose Point of Care 80 mg/dl (65-105)
[2023-03-06 15:08] LABS: Schistocytes None Seen (NORMAL)
[2023-03-06 15:09] LABS: Hypochromasia 1+ (NORMAL)
[2023-03-06 15:10] LABS: Anisocytosis 2+ (NORMAL)
--- NOTE | 2023-03-06 16:14 | ED.GENADULT ---
HPI - General Adult General Chief complaint: Unspecified Stated complaint: blurred vision, sob Time Seen by Provider: 03/06/23 15:47 History of Present Illness HPI narrative: 62-year-old male of history of diabetes and a false eye and right eye presents to the ED have increased shortness of breath and generalized weakness. Patient states early years having some blurred vision out of his left eye. Patient denies any active bleeding. Related Data Home Medications Medication Instructions Recorded Confirmed blood sugar diagnostic (OneTouch #10 ea 08/19/19 08/02/22 Ultra Blue Test Strip) lancets 30 gauge (TRUEplus Lancets) #25 ea 08/19/19 08/02/22 omega 5-pwy-mqr-fish oil 1,000 mg 1 cap PO BID 12/02/19 08/02/22 (120 mg-180 mg) capsule (Fish Oil) carvedilol 25 mg tablet 25 mg PO Q12H 05/12/20 08/02/22 ginkgo biloba 40 mg tablet 40 mg PO TID 05/12/20 08/02/22 brimonidine 0.2 % eye drops 2 drp ophthalmic (eye) DIRECTED 11/24/20 08/02/22 insulin glargine 100 unit/mL (3 18 unit subcut DIRECTED 11/24/20 08/02/22 mL) subcutaneous pen (Lantus Solostar U-100 Insulin) losartan 100 mg tablet 100 mg PO DAILY 11/24/20 08/02/22 Allergies Allergy/AdvReac Type Severity Reaction Status Date / Time No Known Allergies Allergy Verified 03/06/23 16:48 Review of Systems Review of Systems: All systems reviewed & are unremarkable except as noted in HPI and below PMFSH Past Medical History Medical History Anxiety Depression Diabetes mellitus Glaucoma Hyperlipidemia Hypertension Family History Family History Mother Diabetes mellitus Grandparent No problems noted. Social History Social History Smoking packs per day: 0.5 Smoking cigarettes per day: 10.0 Years smoked: 40 Smoking pack-years: 20.00 Smoking status: Current every day smoker Tobacco type: cigarettes Second hand tobacco smoke exposure: Yes Alcohol intake: never Substance use: never Living arrangements: with family Exam Narrative: APPEARANCE: Well appearing, no pain, no distress, well-nourished. HEAD: normocephalic, atraumatic. EYES: PERRLA/EOMI, conjunctivae clear. NOSE: Normal no drainage EARS:TMS clear with good light reflex. THROAT: Pharynx clear, no exudate. NECK: Supple. No adenopathy, no masses. RESPIRATORY: Airway patent, respirations nonlabored. Clear to auscultation bilaterally, no rales, rhonchi, wheezing. CARDIOVASCULAR: Regular rate and rhythm without murmurs rubs or gallops. ABDOMINAL: Soft, nontender, nondistended, normal bowel sounds MUSCULOSKELETAL: Moves all extremities. Strength/ROM intact, No edema, No calf tenderness. NEURO: Alert. Cranial nerves II through XII intact. Rectal: Hemoccult negative Course Course Emergency Course: 62-year-old male presents emergency department for evaluation of multiple complaints. Patient states he did have some fatigue earlier but also admits he has not been eating well. Patient is afebrile with no leukocytosis and hemoglobin of 7.8. Hemoglobin is stable around 13. Patient denies any active bleeding and patient was Hemoccult negative on the digital rectal exam. CMP showed no significant abnormalities. Head CT was negative. Patient denied having any current vision changes and patient states he felt improved after eating. Vital Signs Vital signs: Vital Signs Temperature 97.9 F 03/06/23 14:15 Pulse Rate 57 L 03/06/23 14:15 Respiratory Rate 18 03/06/23 14:15 Blood Pressure 148/64 H 03/06/23 14:15 Pulse Oximetry 100 03/06/23 14:15 Oxygen Delivery Room Air 03/06/23 14:15 Temperature 97.9 F 03/06/23 14:15 Pulse Rate 77 03/06/23 18:04 Respiratory Rate 18 03/06/23 14:15 Blood Pressure 121/51 L 03/06/23 18:04 Pulse Oximetry 100 03/06/23 14:15 Ox
[2023-03-06] MEDS: SODIUM CHLORIDE 0.9% IV 1,000 ML 999 ML IV CONT (16:47)
--- NOTE | 2023-03-06 16:49 | PC.NURSE ---
patient refused IV saline
--- NOTE | 2023-03-06 17:21 | PC.NURSE ---
Patient refused saline infusion. Provider aware
--- NOTE | 2023-03-06 18:33 | PC.NURSE ---
Patient ambulated out of department with steady gate. Patient states his vision is still blurry and provider aware of this. Dr Allen still okay with discharging patient.
== END 2023-03-06 19:12 | disposition home or self-care (01) ==
PROVIDERS: Emergency Medicine; Emergency Provider Emergency Medicine; PCP Emergency Medicine
DX: D64.9 Anemia, unspecified (principal); R53.83 Other fatigue; E11.39 Type 2 diabetes mellitus with other diabetic ophthalmic complication; H42 Glaucoma in diseases classified elsewhere; I10 Essential (primary) hypertension; E78.5 Hyperlipidemia, unspecified; F17.210 Nicotine dependence, cigarettes, uncomplicated; Z79.4 Long term (current) use of insulin; R00.1 Bradycardia, unspecified; R94.31 Abnormal electrocardiogram [ECG] [EKG]
CPT/HCPCS: 36415; 70450; 80053; 82948; 85025; 93005; 99284; J7030

== ENCOUNTER 2023-04-03 16:20 | Outpatient (CLI) | payer OTHER, SELFPAY ==
[2023-04-03 17:21] LABS: Hematocrit 34.7 % (42.0-52.0); Hemoglobin 10.1 g/dL (14.0-18.0); Mean Corpuscular HGB Conc 29.1 g/dl (32-36); Mean Corpuscular Hemoglobin 26.9 pg (26-34); Mean Corpuscular Volume 92.5 fl (80-100); Mean Platelet Volume 10.2 fl (7.4-10.4); Platelet Count Result 307 k/mm3 (150-375); Red Blood Count 3.75 M/mm3 (4.6-6.20); Red Cell Distribution Width 15.6 % (11.5-14.5); White Blood Count 6.3 K/mm3 (4.5-10.0)
[2023-04-03 17:24] LABS: Appearance Urine Clear (Clear); Bilirubin Urine Negative (Negative); Blood Urine Negative (Negative); Color Urine Yellow (Yellow); Glucose Urine UA 3+ mg/dL (Negative); Ketones Urine Negative (Negative); Leukocyte Esterase Ur Negative LEU/UL (NEGATIVE); Nitrate Urine Negative (Negative); Protein Urine Negative (Negative); Specific Grav Ur 1.027 (1.001-1.035); Urobilinogen Urine 0.2 mg/dL (<2.0); pH Urine 6.5 (5.0-9.0)
[2023-04-03 17:28] LABS: Alanine Aminotransferase 17 U/L (6-50); Albumin Level 3.9 g/dL (3.5-5.1); Alkaline Phosphatase 56 U/L (38-126); Anion Gap 7 mmol/L (8-16); Aspartate Amino Transferase 27 U/L (17-59); Bilirubin,Total 0.3 mg/dL (0.2-1.3); Blood Urea Nitrogen 23 mg/dL (9-20); Calcium 10.2 mg/dL (8.4-10.2); Carbon Dioxide 28 mmol/L (22-30); Chloride 105 mmol/L (98-107); Estimated Glomerular Filt Rate 56; Glucose 235 mg/dL (65-110); Potassium 3.8 mmol/L (3.4-5.0); Sodium 140 mmol/L (137-145)
[2023-04-03 17:33] LABS: Add Urine Microscopic? NO
[2023-04-03 17:51] LABS: Iron 136 ug/dL (49-181)
[2023-04-03 17:59] LABS: Prostate Specific Antigen 0.3 ng/mL (< OR = 4.0)
[2023-04-03 18:00] LABS: Percent Iron Saturation 32 % (20-50)
[2023-04-03 18:04] LABS: Hemoglobin A1C 6.4 % (<5.7)
[2023-04-03 18:08] LABS: Creatinine Urine 60.6 mg/dL
[2023-04-03 18:10] LABS: Free T4 Free Thyroxine 1.77 ng/mL (0.78-2.19)
[2023-04-03 18:13] LABS: MALB Creatinine Ratio 80.9 mg/g (0-30)
== END 2023-04-03 16:21 | disposition home or self-care (01) ==
PROVIDERS: PCP Emergency Medicine; Visit Provider Emergency Medicine
DX: D64.9 Anemia, unspecified (principal); E11.9 Type 2 diabetes mellitus without complications; I10 Essential (primary) hypertension
CPT/HCPCS: 36415; 80053; 81003; 82043; 83036; 83540; 83550; 84153; 84439; 84443; 85027

== ENCOUNTER 2023-04-19 12:25 | Observation (INO) | payer OTHER, SELFPAY ==
--- NOTE | ~2023-04-19 | XR_ITS ---
XR chest 1V portable DATE: 04/20/2023 01:01 INDICATION: Weakness. Fluid retention. TECHNIQUE: Portable AP chest on 04/20/2023 and 0046 hours COMPARISON: 03/21/2021 2 view chest FINDINGS: Cardiomegaly. Aortic calcification. There is pulmonary vascular congestion and redistributi on consistent with mild congestive heart failure. Mild mid and lower lung infiltrate and/or atelectasis is suggested, which may be due to pulmonary coral ma. Pneumonia is not excluded. No pleural effusion or pneumothorax is evident. Diffuse osteopenia. IMPRESSION: Cardiomegaly, mild congestive changes Reviewed, dictated and finalized at location A. RY MACHINE OPERATOR
--- NOTE | ~2023-04-19 | US_ITS ---
US venous doppler [facility] DATE: 04/20/2023 12:54 INDICATION: Swelling of the lower extremities. Elevated d-dimer. TECHNIQUE: Real-time and color flow imaging and Doppler analysis of the veins of both lower extremiti es COMPARISON: None FINDINGS: The great saphenous veins are patent. There is spontaneous and phasic flow and normal augme ntation and color flow signal and normal compression of the deep veins of both lower extremities. IMPRESSION: No evidence of deep venous thrombosis of the lower extremities Reviewed, dictated and finalized at Location A. Reviewed, dictated and finalized at location A. UNTING BOOKKEEPER
[2023-04-19 13:33] VITALS: BP 188/75; PULSE 80; RESP 16; TEMP 36.9; O2SAT 98
[2023-04-20] VITALS: BP 197/86; PULSE 76; RESP 15; O2SAT 98
--- NOTE | 2023-04-20 00:40 | ECG_ITS ---
Measurements Intervals [place] Rate: 74 P: 47 WV: 156 QRS: 83 QRSD: 108 T: 66 QT: 414 QTc: 461 Interpretive Statements SINUS RHYTHM BORDERLINE R WAVE PROGRESSION, ANTERIOR LEADS BASELINE ARTIFACT- I, II, AVR BORDERLINE ECG COMPARED TO ECG 03/06/2023 14:38:14 SINUS RHYTHM NOW PRESENT Electronically Signed On 04-20-2023 8:44:25 [employer]ITEWATER RAFTING GUIDE by Shiraz Lerma D.O.
--- NOTE | 2023-04-20 01:31 | PC.NURSE ---
Patient states that he does not want an IV or medication
[2023-04-20 01:43] LABS: Basophils Absolute Auto 0.1 K/mm3 (0.0-0.1); Basophils Percent Auto 0.7 % (0.2-1.2); Eosinophils Absolute Auto 0.2 K/mm3 (0-0.3); Eosinophils Percent Auto 3.5 % (0-4.4); Hematocrit 33.7 % (42.0-52.0); Hemoglobin 10.2 g/dL (14.0-18.0); Immature Granulocyte Absolute 0.02 K/mm3 (0.00-0.031); Immature Granulocyte Percent A 0.3 % (0-0.5); Lymphocytes Absolute Auto 1.26 K/mm3 (0.9-3.2); Lymphocytes Percent Auto 18.2 % (18.3-44.2); Mean Corpuscular HGB Conc 30.3 g/dl (32-36); Mean Corpuscular Hemoglobin 27.1 pg (26-34); Mean Corpuscular Volume 89.6 fl (80-100); Mean Platelet Volume 10.5 fl (7.4-10.4); Monocytes Absolute Auto 0.7 K/mm3 (0.1-0.6); Monocytes Percent Auto 10.4 % (2.6-8.5); Neutrophils Absolute Auto 4.6 K/mm3 (1.3-6.7); Neutrophils Percent Auto 66.9 % (45.5-73.1); Platelet Count Result 250 k/mm3 (150-375); Red Blood Count 3.76 M/mm3 (4.6-6.20); Red Cell Distribution Width 15.6 % (11.5-14.5); White Blood Count 6.9 K/mm3 (4.5-10.0)
--- NOTE | 2023-04-20 01:48 | ED.GENADULT ---
HPI - General Adult General Chief complaint: Extremity Injury, Lower Stated complaint: leg swelling Time Seen by Provider: 04/20/23 00:26 History of Present Illness HPI narrative: patient is 62-year-old gentleman who presents emergency department with chief complaint of lower extremity edema. Patient has prior history of recent aorta repair and reports that intermittently he has been having swelling of his right lower extremity. Patient states that he is concerned he may have congestive heart failure or may have a blood clot in the leg. Related Data Home Medications Medication Instructions Recorded Confirmed blood sugar diagnostic (OneTouch #10 ea 08/19/19 08/02/22 Ultra Blue Test Strip) lancets 30 gauge (TRUEplus Lancets) #25 ea 08/19/19 08/02/22 omega 0-tzd-uao-fish oil 1,000 mg 1 cap PO BID 12/02/19 08/02/22 (120 mg-180 mg) capsule (Fish Oil) carvedilol 25 mg tablet 25 mg PO Q12H 05/12/20 08/02/22 ginkgo biloba 40 mg tablet 40 mg PO TID 05/12/20 08/02/22 brimonidine 0.2 % eye drops 2 drp ophthalmic (eye) DIRECTED 11/24/20 08/02/22 insulin glargine 100 unit/mL (3 18 unit subcut DIRECTED 11/24/20 08/02/22 mL) subcutaneous pen (Lantus Solostar U-100 Insulin) losartan 100 mg tablet 100 mg PO DAILY 11/24/20 08/02/22 Allergies Allergy/AdvReac Type Severity Reaction Status Date / Time No Known Allergies Allergy Verified 03/06/23 16:48 Review of Systems Review of Systems: A 10 system review of systems was completed on the patient and is negative except for what is stated in the HPI. Nursing and ancillary documentation was reviewed. [facility] [place] [place] Past Medical History Medical History Anxiety Depression Diabetes mellitus Glaucoma Hyperlipidemia Hypertension Family History Family History Mother Diabetes mellitus Grandparent No problems noted. Social History Social History Smoking packs per day: 0.5 Smoking cigarettes per day: 10.0 Years smoked: 40 Smoking pack-years: 20.00 Smoking status: Current every day smoker Tobacco type: cigarettes Second hand tobacco smoke exposure: Yes Alcohol intake: never Substance use: never Living arrangements: with family Exam Narrative: GENERAL: Well-appearing, well-nourished, and in no acute distress. HEAD: Normocephalic, atraumatic. EYES: PERRLA and EOMI. ENT: Nares clear, no rhinorrhea or epistaxis. Mucous membranes moist. NECK: Supple. CHEST: Clear to auscultation. No respiratory distress. HEART: Regular rate and rhythm. No murmur heard. Normal peripheral pulses. ABDOMEN: Soft, nontender, nondistended, normal active bowel sounds. well-approximated scar on the abdomen wall EXTREMITIES: Normal range of motion. +1 edema. SKIN: Warm, dry, no rash. NEURO: No focal deficits. Alert and oriented x3. PSYCH: Normal mood and affect. Course Vital Signs Vital signs: Vital Signs Temperature 36.9 C 04/19/23 13:33 Pulse Rate 80 04/19/23 13:33 Respiratory Rate 16 04/19/23 13:33 Blood Pressure 188/75 H 04/19/23 13:33 Pulse Oximetry 98 04/19/23 13:33 Oxygen Delivery Room Air 04/19/23 13:33 Temperature 36.9 C 04/19/23 13:33 Pulse Rate 81 04/20/23 03:59 Respiratory Rate 15 04/20/23 03:59 Blood Pressure 178/76 H 04/20/23 03:59 Pulse Oximetry 97 04/20/23 03:59 Oxygen Delivery Room Air 04/19/23 13:33 Medical Decision Making [facility] Narrative Medical decision making narrative: differential diagnosis includes CHF, DVT. Patient's BNP was slightly elevated at 1580 D-dimer was elevated at 2.82. Given it was 430 in the morning and the patient will need an echo as well the case was discussed with the hospitalist patient admitted for observation for an echo and peripheral ultrasound. Vit
[2023-04-20 01:55] LABS: Alanine Aminotransferase 15 U/L (6-50); Albumin Level 3.5 g/dL (3.5-5.1); Alkaline Phosphatase 61 U/L (38-126); Anion Gap 7 mmol/L (8-16); Aspartate Amino Transferase 34 U/L (17-59); Bilirubin,Total 0.3 mg/dL (0.2-1.3); Blood Urea Nitrogen 18 mg/dL (9-20); Calcium 9.1 mg/dL (8.4-10.2); Carbon Dioxide 27 mmol/L (22-30); Chloride 105 mmol/L (98-107); Estimated Glomerular Filt Rate > 60; Glucose 139 mg/dL (65-110); Potassium 3.6 mmol/L (3.4-5.0); Sodium 139 mmol/L (137-145)
[2023-04-20 01:57] LABS: Partial Thromboplastin Time 28.5 SECONDS (22.3-36.8); Prothrombin Time 13.4 Seconds (11.1-14.7)
[2023-04-20 02:03] LABS: D Dimer 2.82 ug/mL (<0.48); NT Pro B Type Natriuretic Pept 1580 pg/mL (19.9-100)
[2023-04-20 02:53] LABS: Troponin I 0.018 ng/mL (0.000-0.034)
[2023-04-20 03:59] VITALS: BP 178/76; PULSE 81; RESP 15; O2SAT 97
[2023-04-20 04:04] LABS: Glucose Point of Care 123 mg/dl (65-105)
[2023-04-20] MEDS: ACETAMINOPHEN 500 MG TABLET 1000 MG PO (05:41)
[2023-04-20 06:07] VITALS: BP 160/86; PULSE 76; RESP 15; O2SAT 100
[2023-04-20 06:30] VITALS: BP 199/92; PULSE 87; RESP 14; TEMP 36.2; O2SAT 97; BMI 29.1
[2023-04-20 06:49] VITALS: BMI 29.1
--- NOTE | 2023-04-20 07:01 | ADMGEN ---
This patient, Manolo Becerra, was admitted to [facility] Room 312-01. Patient/family oriented to hospital policies and general routines including ID bracelet, bed and alarms, visiting hours, pain management, procedures, bathroom and other care routines, personal items, smoking policy, room service/diet, and visiting hours. Information on how to activate the Rapid Response Team has been discussed. Patient/Family are encouraged to report perceived risks to care and to ask questions if they do not understand what they are told or what they should do.
[2023-04-20 08:41] LABS: Glucose Point of Care 210 mg/dl (65-105)
--- NOTE | 2023-04-20 11:57 | PCRCNOTE ---
PT.STATES HE HAS NOT WORN HIS CPAP FOR A YEAR ; HE STATES IT IS IN STORAGE. PT. DECLINED OFFER TO WEAR ONE OF OUR UNITS.
--- NOTE | 2023-04-20 12:09 | PM.IMHP ---
H&P: HPI History of Present Illness Date/Time: 04/20/23 12:09 Chief Complaint: lower extremity edema Narrative: This is a 62-year-old male with a past medical history of insulin-dependent diabetes, hypertension, hyperlipidemia with a recent aortic repair from aortic dissection in January. Patient has surgery on January 18, 2023. He presents to the ED due to right lower extremity swelling. Patient stated with swelling developed approximately 5 days ago and has been intermittent but over the past day has not gone down. He did not complain of any swelling on the left leg. He is concerned for CHF verses DVT. He denies any dyspnea, orthopnea, pain in the lower extremity, chest pain, nausea or vomiting. He does states that he has a chronic cough but he is a tobacco user. Patient was admitted for echocardiogram and lower extremity Doppler. 12:15 patient left AMA [facility] Past Medical History Medical History Anxiety Depression Diabetes mellitus Glaucoma Hyperlipidemia Hypertension Family History Family History Mother Diabetes mellitus Grandparent No problems noted. Social History Social History Smoking packs per day: 0.5 Smoking cigarettes per day: 10.0 Years smoked: 40 Smoking pack-years: 20.00 Smoking status: Current every day smoker Second hand tobacco smoke exposure: Yes Alcohol intake: unknown Substance use: never Substance use type: does not use Do You Feel Safe in your Home?: Yes Lack of Transportation: YES Lack of Food: Sometimes True Current Housing: I Do Not Have Housing Concerned About Future Housing: YES Difficulty Paying Gas/Electric Bills: YES Difficulty Paying for Meds: YES Currently Unemployed: No Education: High School Diploma/GED Difficulty w/ Childcare or Family Care: No Living arrangements: with family Spiritual care concerns: No Meds Home Medications and Allergies Home Medications Medication Instructions Recorded Confirmed Type blood sugar diagnostic (OneTouch #10 ea 08/19/19 04/20/23 History Ultra Blue Test Strip) lancets 30 gauge (TRUEplus Lancets) #25 ea 08/19/19 04/20/23 History omega 1-kdt-qxp-fish oil 1,000 mg 1 cap PO BID 12/02/19 04/20/23 History (120 mg-180 mg) capsule (Fish Oil) carvedilol 25 mg tablet 25 mg PO Q12H 05/12/20 04/20/23 History ginkgo biloba 40 mg tablet 40 mg PO BID 05/12/20 04/20/23 History brimonidine 0.2 % eye drops 2 drp ophthalmic (eye) DIRECTED 11/24/20 04/20/23 History insulin glargine 100 unit/mL (3 24 unit subcut DAILY 11/24/20 04/20/23 History mL) subcutaneous pen (Lantus Solostar U-100 Insulin) losartan 100 mg tablet 100 mg PO DAILY 11/24/20 04/20/23 History zkxdrqmr-wmhwudomp-bsfvvnwg 3.5 1 drp LEFT EYE Q6H 7 days #5 mL 07/19/22 04/20/23 Rx mg/mL-10,000 unit/mL-0.1% eye drops fenofibrate nanocrystallized 145 145 mg PO DAILY 04/20/23 04/20/23 History mg tablet hydralazine 10 mg tablet 10 mg PO DAILY 04/20/23 04/20/23 History hydrochlorothiazide 12.5 mg capsule 12.5 mg PO DAILY 04/20/23 04/20/23 History Allergies Allergy/AdvReac Type Severity Reaction Status Date / Time No Known Allergies Allergy Verified 03/06/23 16:48 Vital Signs Vital Signs - 24 hr 04/19/23 13:33 04/20/23 00:00 04/20/23 03:59 Temperature 98.5 F Pulse Rate 80 76 81 Respiratory Rate 16 15 15 Blood Pressure 188/75 H 197/86 H 178/76 H Pulse Oximetry 98 98 97 Oxygen Delivery Room Air 04/20/23 06:07 04/20/23 06:30 Temperature 97.2 F L Pulse Rate 76 87 Respiratory Rate 15 14 Blood Pressure 160/86 H 199/92 H Pulse Oximetry 100 97 Oxygen Delivery Exam Narrative: GENERAL: Comfortable, no acute distress HENMT: moist mucous membranes EYES: EOM intact b/l NECK: no lymphadenopathy RESPIRAT
[2023-04-20 12:35] LABS: Glucose Point of Care 255 mg/dl (65-105)
== END 2023-04-20 13:15 | disposition left against medical advice (07) ==
LOC: ANHED 04-20 04:45 → ANH3MEDSUR 04-20 05:54
PROVIDERS: Admitting Provider Internal Medicine; Emergency Provider Emergency Medicine; PCP Emergency Medicine; Visit Provider Internal Medicine
DX: R60.0 Localized edema (principal); R53.1 Weakness; F41.9 Anxiety disorder, unspecified; F32.A Depression, unspecified; E11.9 Type 2 diabetes mellitus without complications; H40.9 Unspecified glaucoma; R79.89 Other specified abnormal findings of blood chemistry; R79.1 Abnormal coagulation profile; E78.5 Hyperlipidemia, unspecified; I11.9 Hypertensive heart disease without heart failure; Z98.890 Other specified postprocedural states; Z79.899 Other long term (current) drug therapy; F17.210 Nicotine dependence, cigarettes, uncomplicated; Z79.4 Long term (current) use of insulin
CPT/HCPCS: 36415; 71045; 80053; 82948; 83880; 84484; 85025; 85380; 85610; 85730; 93005; 93970; 99285; A9270; G0378; G0379

== ENCOUNTER 2023-06-28 12:22 | Emergency (ER) | payer OTHER, SELFPAY ==
[2023-06-28 12:59] VITALS: BP 111/68; PULSE 62; RESP 18; TEMP 37.1; O2SAT 99
--- NOTE | 2023-06-28 13:03 | ED.EXTPRO ---
HPI - Extremity Problem General Chief complaint: Extremity Injury, Lower Stated complaint: Both Feet Irritation Time Seen by Provider: 06/28/23 13:00 Source: patient Mode of arrival: ambulatory Limitations: no limitations History of Present Illness HPI Narrative: Manolo is a 62-year-old male patient presenting to the clinic today for complaints of a wooden splinter stuck in his right foot just below his right 5th toe and a splinter to the mid distal foot of the left foot with redness and swelling. Patient is diabetic. States he does suffer from neuropathy. He denies any fever or chills. Related Data Home Medications Medication Instructions Recorded Confirmed blood sugar diagnostic (OneTouch #10 ea 08/19/19 06/28/23 Ultra Blue Test Strip) lancets 30 gauge (TRUEplus Lancets) #25 ea 08/19/19 06/28/23 omega 8-lmu-doy-fish oil 1,000 mg 1 cap PO BID 12/02/19 06/28/23 (120 mg-180 mg) capsule (Fish Oil) carvedilol 25 mg tablet 25 mg PO Q12H 05/12/20 06/28/23 ginkgo biloba 40 mg tablet 40 mg PO BID 05/12/20 06/28/23 brimonidine 0.2 % eye drops 2 drp ophthalmic (eye) DIRECTED 11/24/20 06/28/23 insulin glargine 100 unit/mL (3 24 unit subcut DAILY 11/24/20 06/28/23 mL) subcutaneous pen (Lantus Solostar U-100 Insulin) losartan 100 mg tablet 100 mg PO DAILY 11/24/20 06/28/23 hydralazine 10 mg tablet 10 mg PO DAILY 04/20/23 06/28/23 hydrochlorothiazide 12.5 mg capsule 12.5 mg PO DAILY 04/20/23 06/28/23 aspirin 81 mg tablet,delayed 81 mg PO DAILY 04/24/23 06/28/23 release Allergies Allergy/AdvReac Type Severity Reaction Status Date / Time No Known Allergies Allergy Verified 06/28/23 13:03 Review of Systems Review of Systems: Pertinent positives per HPI. Patient denies any fever, chills, rash, headache, visual changes, dizziness, cough, runny nose, sore throat, shortness of breath, chest pain, palpitations, nausea, vomiting, diarrhea, constipation, abdominal pain, or any urinary issues. [facility] Past Medical History Medical History Anxiety Depression Diabetes mellitus Glaucoma Hyperlipidemia Hypertension Family History Family History Mother Diabetes mellitus Grandparent No problems noted. Social History Social History Smoking packs per day: 0.5 Smoking cigarettes per day: 10.0 Years smoked: 40 Smoking pack-years: 20.00 Smoking status: Current every day smoker Tobacco type: cigarettes Second hand tobacco smoke exposure: Yes Alcohol intake: unknown Substance use: never Substance use type: does not use Do You Feel Safe in your Home?: Yes Lack of Transportation: YES Lack of Food: Sometimes True Current Housing: I Do Not Have Housing Concerned About Future Housing: YES Difficulty Paying Gas/Electric Bills: YES Difficulty Paying for Meds: YES Currently Unemployed: No Education: High School Diploma/GED Difficulty w/ Childcare or Family Care: No Living arrangements: with family Spiritual care concerns: No Comments At the time of my signature, I reviewed and agree with the nursing past medical, surgical, social, and family history. There is no relevant family history pertinent to the patient complaint. Exam Narrative: General: Well-developed, well nourished, in no apparent distress Head: Normocephalic, atraumatic. Cardio: Regular rate and rhythm, s1 and s2 normal, no murmur appreciated. Resp: Clear to auscultation bilaterally, no rhonchi, rales, wheezing or rubs. Integumentary: [place], warm, and dry, retained splinter to the right foot pad just below the 5th toe and retained splinter to the distal left midfoot with localized redness and swelling. Course Course Emergency Course: Portions of this record may have been created with voice recognition software.
== END 2023-06-28 13:10 | disposition home or self-care (01) ==
PROVIDERS: Emergency Provider Nurse Practitioner Family; PCP Emergency Medicine
DX: S90.851A Superficial foreign body, right foot, initial encounter (principal); S90.852A Superficial foreign body, left foot, initial encounter; L08.9 Local infection of the skin and subcutaneous tissue, unspecified; W45.8XXA Other foreign body or object entering through skin, initial encounter; F17.210 Nicotine dependence, cigarettes, uncomplicated; E11.39 Type 2 diabetes mellitus with other diabetic ophthalmic complication; H42 Glaucoma in diseases classified elsewhere; E11.40 Type 2 diabetes mellitus with diabetic neuropathy, unspecified; Z79.4 Long term (current) use of insulin; E78.5 Hyperlipidemia, unspecified; I10 Essential (primary) hypertension; Z79.82 Long term (current) use of aspirin
CPT/HCPCS: 99213; G0463

== ENCOUNTER 2023-09-20 13:02 | Outpatient (CLI) | payer OTHER, SELFPAY ==
[2023-09-20 13:35] LABS: Hematocrit 38.6 % (42.0-52.0); Hemoglobin 13.1 g/dL (14.0-18.0); Mean Corpuscular HGB Conc 33.9 g/dl (32-36); Mean Corpuscular Hemoglobin 29.6 pg (26-34); Mean Corpuscular Volume 87.1 fl (80-100); Mean Platelet Volume 9.9 fl (7.4-10.4); Platelet Count Result 248 k/mm3 (150-375); Red Blood Count 4.43 M/mm3 (4.6-6.20); White Blood Count 7.5 K/mm3 (4.5-10.0)
[2023-09-20 13:50] LABS: Anion Gap 5 mmol/L (4-12); Blood Urea Nitrogen 9 mg/dL (9-20); Calcium 8.8 mg/dL (8.4-10.2); Carbon Dioxide 26 mmol/L (22-30); Chloride 109 mmol/L (98-107); Estimated Glomerular Filt Rate > 60; Glucose 172 mg/dL (65-110); Potassium 3.3 mmol/L (3.4-5.0); Sodium 140 mmol/L (137-145)
[2023-09-20 13:59] LABS: NT Pro B Type Natriuretic Pept 1630 pg/mL (19.9-100)
[2023-09-20 14:26] LABS: Free T4 Free Thyroxine 1.27 ng/mL (0.78-2.19)
== END 2023-09-20 13:03 | disposition home or self-care (01) ==
PROVIDERS: PCP Emergency Medicine
DX: I50.32 Chronic diastolic (congestive) heart failure (principal)
CPT/HCPCS: 36415; 80048; 83880; 84439; 84443; 85027

== ENCOUNTER 2023-10-21 00:21 | Emergency (ER) | payer OTHER, SELFPAY ==
[2023-10-21] VITALS (8 sets, daily range): BP systolic 156–226; BP diastolic 75–99; PULSE 59–67; RESP 14–28; TEMP 36.6; O2SAT 94–100
--- NOTE | ~2023-10-21 | CT_ITS ---
Noncontrast CT scan of the thoracolumbar spine CLINICAL HISTORY: Back pain TECHNIQUE: Axial noncontrast imaging of the thoracolumbar spine was performed. Sagittal and coronal r eformatted images were constructed. Dose reduction technique was used on this scan by utilizing autom ated exposure control and iterative reconstruction technique. The dose-length product (DLP) was 1475. 11 mGy-cm. FINDINGS: There is no fracture or subluxation of the thoracolumbar spine. There is moderate degenerat shira disc narrowing at T10-T11, and T11-T12. There are additional mild degenerative disc changes in th e remainder of the thoracic spine. Remaining lumbar disc spaces are relatively well-preserved. There are mild facet joint degenerative changes in the lumbar spine. There is probable multifactorial moder ate central canal stenosis/thecal sac compression at L3-L4. Possible minimal central canal stenosis a t L4-L5. There is mild to moderate bilateral neural foraminal narrowing at L4-L5. Remaining neural fo ramina are probably preserved. Paravertebral soft tissues are unremarkable. Impression: No acute fracture or subluxation. Moderate degenerative spondylosis at L3-L4 and L4-L5, as above. Additional mild degenerative changes, as above. Reviewed, dictated and finalized at location . Impression: No acute fracture or subluxation. Moderate degenerative spondylosis at L3-L4 and L4-L5, as above. Additional mild degenerative changes, as above.
--- NOTE | ~2023-10-21 | CT_ITS ---
Clinical Indication: Back pain CT Scan of the Chest, Abdomen, and Pelvis with Contrast: Technique: Contiguous sections were acquired throughout the chest, abdomen, and pelvis after intraven ous administration of 100 cc of Omnipaque 350. Dose reduction technique was used on this scan by radha russell automated exposure control and iterative reconstruction technique. The dose-length product (DL P) was 1207.51 mGy-cm. COMPARISON: 11/04/2020 Findings: There is no evidence of any significant mediastinal, hilar or axillary lymphadenopathy. The mediastin al soft tissues appear normal. No aortic aneurysm or dissection. There is atherosclerotic change of t he thoracic aorta. No pulmonary embolus identified. Heart is mildly enlarged. There is no evidence of pleural or pericardial effusion. The lungs are clear. No pulmonary nodules or infiltrates are noted. The liver, spleen, pancreas, gallbladder, adrenals and kidneys are within normal limits. There is sev ere atherosclerotic disease of the [place] aorta and iliac vessels. There is aortobifemoral bypass. No lymphadenopathy. No bowel obstruction or bowel wall thickening. There is no evidence to suggest acute appendicitis. Du odenal diverticulum noted. Urinary bladder is unremarkable. No pelvic mass seen. No ascites. Impression: Extensive atherosclerotic disease, as above, with aortobifemoral bypass present. No acute abnormality seen. Reviewed, dictated and finalized at [facility]. Impression: Extensive atherosclerotic disease, as above, with aortobifemoral bypass present . No acute abnormality seen.
--- NOTE | 2023-10-21 02:38 | ED.BACK ---
HPI - Back Pain/Injury General Chief Complaint: Back Pain/Injury Stated Complaint: Back pain, fall last week, fell down six steps Time Seen by Provider: 10/21/23 02:12 History of Present Illness HPI Narrative: Patient is a 62-year-old male with history hyperlipidemia, hypertension, aortic bypass in January 2023, CHF here with back pain. patient notes that about a week ago he was at his primary care doctor's office and missed a step and fell down approximately 6 stairs. He denies head injury. He states he developed some right-sided back pain about 3 days later. He states that it has been manageable until yesterday when it began more severe. He notes it is located over his right flank, denies any radiation. He notes that it worsens with certain positions. Earlier today he notes that he was trying to get comfortable and rolled over on his side and felt a pop on his right lower ribs.He took Tylenol around 6:00 p.m. without any improvement of his symptoms. He denies any blood thinner use. He does note he had some shortness of breath earlier today. Denies any chest pain. Denies any abdominal pain. Of note he follows with a office services representative out of [facility] now. His aortic bypass was performed at [facility]. Related Data Home Medications Medication Instructions Recorded Confirmed blood sugar diagnostic (OneTouch #10 ea 08/19/19 06/28/23 Ultra Blue Test Strip) lancets 30 gauge (TRUEplus Lancets) #25 ea 08/19/19 06/28/23 omega 4-nqc-wfz-fish oil 1,000 mg 1 cap PO BID 12/02/19 06/28/23 (120 mg-180 mg) capsule (Fish Oil) carvedilol 25 mg tablet 25 mg PO Q12H 05/12/20 06/28/23 ginkgo biloba 40 mg tablet 40 mg PO BID 05/12/20 06/28/23 brimonidine 0.2 % eye drops 2 drp ophthalmic (eye) DIRECTED 11/24/20 06/28/23 insulin glargine 100 unit/mL (3 24 unit subcut DAILY 11/24/20 06/28/23 mL) subcutaneous pen (Lantus Solostar U-100 Insulin) losartan 100 mg tablet 100 mg PO DAILY 11/24/20 06/28/23 hydralazine 10 mg tablet 10 mg PO DAILY 04/20/23 06/28/23 hydrochlorothiazide 12.5 mg capsule 12.5 mg PO DAILY 04/20/23 06/28/23 aspirin 81 mg tablet,delayed 81 mg PO DAILY 04/24/23 06/28/23 release Allergies Allergy/AdvReac Type Severity Reaction Status Date / Time No Known Allergies Allergy Verified 06/28/23 13:03 [facility] Past Medical History Medical History Anxiety Depression Diabetes mellitus Glaucoma Hyperlipidemia Hypertension Family History Family History Mother Diabetes mellitus Grandparent No problems noted. Social History Social History Smoking packs per day: 0.5 Smoking cigarettes per day: 10.0 Years smoked: 40 Smoking pack-years: 20.00 Smoking status: Current every day smoker Tobacco type: cigarettes Second hand tobacco smoke exposure: Yes Alcohol intake: unknown Substance use: never Substance use type: does not use Do You Feel Safe in your Home?: Yes Lack of Transportation: YES Lack of Food: Sometimes True Current Housing: I Do Not Have Housing Concerned About Future Housing: YES Difficulty Paying Gas/Electric Bills: YES Difficulty Paying for Meds: YES Currently Unemployed: No Education: High School Diploma/GED Difficulty w/ Childcare or Family Care: No Living arrangements: with family Spiritual care concerns: No Course Course Emergency Course: Chart review performed. Patient here with right back pain. Notes he fell down stairs 6 days ago, pain began a few days ago. No blood thinners. Triage vitals show HTN, otherwise normal. Cardiology visit reviewed from 04/24/23, they note history of DM, htn, HLD, PAD (sees vascular surgery at [facility]. History of abdominal aortic bypass surgery in at [facility] in 2022. Patient seen evaluated, nontoxic appearing. He does have some r
--- NOTE | 2023-10-21 02:40 | ECG_ITS ---
Test Date: 2023-10-21 02:59:12 Measurements Intervals [place] Rate: 59 P: 8 NV: 160 QRS: 83 QRSD: 106 T: 62 QT: 416 QTc: 412 Interpretive Statements SINUS BRADYCARDIA BORDERLINE R WAVE PROGRESSION, ANTERIOR LEADS BASELINE ARTIFACT- I, II, AVR, AVL BORDERLINE ECG No previous ECG available for comparison Electronically Signed On 10-21-2023 06:13:21 CDT by Shiraz Lerma D.O.
[2023-10-21] MEDS: MORPHINE SULFATE (*CRX) 4 MG/ML INJ IV PUSH (02:50)
[2023-10-21] MEDS: ONDANSETRON INJ 4 MG/2 ML VIAL IV PUSH (02:51)
[2023-10-21] MEDS: hydrALAZINE HCL 20 MG/ML VIAL 10 MG IV PUSH (02:51)
[2023-10-21 03:39] LABS: Basophils Absolute Auto 0.1 K/mm3 (0.0-0.1); Basophils Percent Auto 0.6 % (0.2-1.2); Eosinophils Absolute Auto 0.2 K/mm3 (0-0.3); Eosinophils Percent Auto 1.8 % (0-4.4); Hematocrit 43.2 % (42.0-52.0); Hemoglobin 13.9 g/dL (14.0-18.0); Immature Granulocyte Absolute 0.03 K/mm3 (0.00-0.031); Immature Granulocyte Percent A 0.3 % (0-0.5); Lymphocytes Percent Auto 16.6 % (18.3-44.2); Mean Corpuscular HGB Conc 32.2 g/dl (32-36); Mean Corpuscular Hemoglobin 29.3 pg (26-34); Mean Corpuscular Volume 90.9 fl (80-100); Mean Platelet Volume 10.2 fl (7.4-10.4); Monocytes Absolute Auto 0.6 K/mm3 (0.1-0.6); Monocytes Percent Auto 6.5 % (2.6-8.5); Neutrophils Absolute Auto 6.7 K/mm3 (1.3-6.7); Neutrophils Percent Auto 74.2 % (45.5-73.1); Platelet Count Result 259 k/mm3 (150-375); Red Blood Count 4.75 M/mm3 (4.6-6.20); Red Cell Distribution Width 13.7 % (11.5-14.5)
[2023-10-21 03:49] LABS: Alanine Aminotransferase 18 U/L (6-50); Albumin Level 3.9 g/dL (3.5-5.1); Alkaline Phosphatase 104 U/L (38-126); Anion Gap 6 mmol/L (4-12); Aspartate Amino Transferase 25 U/L (17-59); Bilirubin,Total 0.5 mg/dL (0.2-1.3); Blood Urea Nitrogen 13 mg/dL (9-20); Calcium 9.2 mg/dL (8.4-10.2); Carbon Dioxide 31 mmol/L (22-30); Chloride 102 mmol/L (98-107); Estimated CRCL calculation 71 ml/min; Estimated Glomerular Filt Rate > 60; Glucose 153 mg/dL (65-110); Magnesium 1.8 mg/dL (1.6-2.3); Sodium 139 mmol/L (137-145)
[2023-10-21 03:51] LABS: Lactic Acid Reflex 0.8 mmol/L (0.7-2.0)
[2023-10-21 03:52] LABS: Prothrombin Time 13.3 Seconds (11.1-14.7)
[2023-10-21 03:53] LABS: Partial Thromboplastin Time 26.4 Seconds (22.3-36.8)
[2023-10-21 04:01] LABS: Troponin I < 0.012 ng/mL (0.000-0.034)
--- NOTE | 2023-10-21 04:08 | PC.NURSE ---
pt to CT via stretcher
[2023-10-21] MEDS: diazePAM (*CRX) 5 MG TABLET 10 MG PO (06:35)
== END 2023-10-21 07:45 | disposition home or self-care (01) ==
PROVIDERS: Emergency Provider Student in an Organized Health Care Education/Training Program; PCP Emergency Medicine
DX: S39.91XA Unspecified injury of abdomen, initial encounter (principal); E11.39 Type 2 diabetes mellitus with other diabetic ophthalmic complication; H42 Glaucoma in diseases classified elsewhere; I25.2 Old myocardial infarction; I11.0 Hypertensive heart disease with heart failure; E78.5 Hyperlipidemia, unspecified; F41.9 Anxiety disorder, unspecified; F32.A Depression, unspecified; F17.210 Nicotine dependence, cigarettes, uncomplicated; Z95.1 Presence of aortocoronary bypass graft; Z79.82 Long term (current) use of aspirin; Z79.4 Long term (current) use of insulin; Z79.899 Other long term (current) drug therapy; R00.1 Bradycardia, unspecified; R94.31 Abnormal electrocardiogram [ECG] [EKG]; M47.816 Spondylosis without myelopathy or radiculopathy, lumbar region; I70.0 Atherosclerosis of aorta; I70.8 Atherosclerosis of other arteries; W10.9XXA Fall (on) (from) unspecified stairs and steps, initial encounter
CPT/HCPCS: 36415; 71275; 72128; 72131; 74174; 80053; 83605; 83735; 84484; 85025; 85610; 85730; 93005; 96374; 96375; 99284; A9270; J0360; J2270; J2405; Q9967

== ENCOUNTER 2024-03-16 14:52 | Observation (INO) | payer OTHER, SELFPAY ==
[2024-03-16] VITALS (17 sets, daily range): BP systolic 102–215; BP diastolic 60–83; PULSE 61–81; RESP 12–25; TEMP 36–36.6; O2SAT 96–99; BMI 27.8
--- NOTE | ~2024-03-16 | NM_ITS ---
EXAMINATION: NM nerissa stress w perfusion DATE: 03/17/2024 12:32 INDICATION: Chest pain. TECHNIQUE: Rest images were obtained following intravenous administration of 9.1 mCi Tc99m tetrofosmi n (Myoview). The patient was infused intravenously with Lexiscan (regadenoson). Then, 30.6 mCi Tc99m tetrofosmin (Myoview) was administered intravenously, and stress images were obtained. Data was recon structed into short axis and horizontal and vertical long axis SPECT images. Gated SPECT images were also obtained. COMPARISON: Myocardial perfusion imaging 08/21/2022 FINDINGS: There is no definite reversible or fixed perfusion abnormality to suggest ischemia or infar ction. There is no segmental wall motion abnormality. Left ventricular ejection fraction measures 5 3%. IMPRESSION: 1. No definite ischemia or infarct. 2. Normal left ventricular ejection fraction measuring 53%. Reviewed, dictated and finalized at location A. PAGE DESIGNER
--- NOTE | ~2024-03-16 | XR_ITS ---
EXAMINATION: XR chest 2V DATE: 03/16/2024 16:06 INDICATION: Left chest pain. TECHNIQUE: Frontal and lateral views of the chest were obtained. COMPARISON: Chest single view 106/24, CT 10/21/2023 FINDINGS: There is no pneumonia, pleural effusion, or pneumothorax. Cardiomegaly is noted. IMPRESSION: 1. Cardiomegaly. Reviewed, dictated and finalized at location A. AL SCIENCE ANALYST IMPRESSION: 1. Cardiomegaly.
--- NOTE | 2024-03-16 14:58 | ECG_ITS ---
Test Date: 2024-03-16 15:39:20 Measurements Intervals [place] Rate: 63 P: 26 WV: 150 QRS: -4 QRSD: 111 T: 78 QT: 406 QTc: 416 Interpretive Statements SINUS RHYTHM MODERATE INTRAVENTRICULAR CONDUCTION DELAY [110+ ms QRS DURATION] NONSPECIFIC T-WAVE ABNORMALITY Compared to ECG 10/21/2023 02:59:12 Intraventricular conduction delay now present NO SIGNIFICANT CHANGES Electronically Signed On 03-17-2024 15:02:40 SHERIFF SERGEANT by Filemon Sharma M.D.
[2024-03-16 15:55] LABS: Basophils Absolute Auto 0.1 K/mm3 (0.0-0.1); Basophils Percent Auto 0.7 % (0.2-1.2); Eosinophils Absolute Auto 0.1 K/mm3 (0-0.3); Eosinophils Percent Auto 0.9 % (0-4.4); Hemoglobin 16.2 g/dL (14.0-18.0); Immature Granulocyte Absolute 0.02 K/mm3 (0.00-0.031); Immature Granulocyte Percent A 0.2 % (0-0.5); Lymphocytes Absolute Auto 1.28 K/mm3 (0.9-3.2); Lymphocytes Percent Auto 15.1 % (18.3-44.2); Mean Corpuscular HGB Conc 33.8 g/dl (32-36); Mean Corpuscular Hemoglobin 30.7 pg (26-34); Mean Corpuscular Volume 91.1 fl (80-100); Mean Platelet Volume 11.3 fl (7.4-10.4); Monocytes Absolute Auto 0.6 K/mm3 (0.1-0.6); Monocytes Percent Auto 6.6 % (2.6-8.5); Neutrophils Absolute Auto 6.5 K/mm3 (1.3-6.7); Neutrophils Percent Auto 76.5 % (45.5-73.1); Platelet Count Result 243 k/mm3 (150-375); Red Blood Count 5.27 M/mm3 (4.6-6.20); Red Cell Distribution Width 13.3 % (11.5-14.5); White Blood Count 8.5 K/mm3 (4.5-10.0)
[2024-03-16 16:14] LABS: Partial Thromboplastin Time 21.9 Seconds (22.3-36.8); Prothrombin Time 13.2 Seconds (11.1-14.7)
--- NOTE | 2024-03-16 16:35 | ED_ITS ---
HPI - Weakness General Chief complaint: Chest Pain <Radha Owen APRN - Last Filed: 03/16/24 16:39> Stated complaint: CP, HTN <Radha Owen APRN - Last Filed: 03/16/24 16:39> Time Seen by Provider: 03/16/24 16:10 <Radha Owen APRN - Last Filed: 03/16/24 16:39> Focused HPI: Patient is a 63-year-old male who presents to the ER with left sided eye changes. He reports when he woke up his vision was black. Patient reports he used 4 different eyedrops and his vision improved. He reports his vision is now back to baseline. Patient endorses history of hypertension, glaucoma, diabetes, previous blocked artery, and bilateral leg neuropathy. He reports he is homeless and needs help with placement. at time of examination patient denies chest pain, shortness of breath, one-sided weakness/tingling/ numbness. GENERAL: Well-appearing, well-nourished, and in no acute distress. HEAD: Normocephalic, atraumatic. 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 CHEST: Clear to auscultation. ?No respiratory distress. HEART: Regular rate and rhythm.? NEURO: ?Alert and oriented x3. Patient screened in triage and initial orders placed.? ?Additional care and disposition to be based upon?diagnostic testing and treatment. <Radha Owen APRN - Last Filed: 03/16/24 16:39> History of Present Illness HPI Narrative: patient is 63-year-old gentleman who presents emergency department with chief complaint of chest pain. Patient reports that he has diabetes hypertension glaucoma and peripheral neuropathy patient reports that he lives in a trailer that had inadequate heat and reports that he would like to explore options for placement the patient states that he has had intermittent discomfort in his chest reports that it is not worsened by anything or isn't improved by anything. <Remberto Ty MD - Last Filed: 03/16/24 22:47> Related Data Home medications: Home Medications Medication Instructions Recorded Confirmed blood sugar diagnostic (OneTouch #10 ea 08/19/19 06/28/23 Ultra Blue Test Strip) lancets 30 gauge (TRUEplus Lancets) #25 ea 08/19/19 06/28/23 omega 2-qse-nnd-fish oil 1,000 mg 1 cap PO BID 12/02/19 06/28/23 (120 mg-180 mg) capsule (Fish Oil) carvedilol 25 mg tablet 25 mg PO Q12H 05/12/20 06/28/23 ginkgo biloba 40 mg tablet 40 mg PO BID 05/12/20 06/28/23 brimonidine 0.2 % eye drops 2 drp ophthalmic (eye) DIRECTED 11/24/20 06/28/23 insulin glargine 100 unit/mL (3 24 unit subcut DAILY 11/24/20 06/28/23 mL) subcutaneous pen (Lantus Solostar U-100 Insulin) losartan 100 mg tablet 100 mg PO DAILY 11/24/20 06/28/23 hydralazine 10 mg tablet 10 mg PO DAILY 04/20/23 06/28/23 hydrochlorothiazide 12.5 mg capsule 12.5 mg PO DAILY 04/20/23 06/28/23 aspirin 81 mg tablet,delayed 81 mg PO DAILY 04/24/23 06/28/23 release <Radha Owen APRN - Last Filed: 03/16/24 16:39> Allergies/Adverse reactions: Allergies Allergy/AdvReac Type Severity Reaction Status Date / Time No Known Allergies Allergy Verified 03/16/24 21:03 <Radha Owen APRN - Last Filed: 03/16/24 16:39> Review of Systems Review of Systems: A 10 system review of systems was completed on the patient and is negative except for what is stated in the HPI. Nursing and ancillary documentation was reviewed. <Remberto Ty MD - Last Filed: 03/16/24 22:47> [facility] Past Medical History Medical History: Medical History Anxiety Depression Diabetes mellitus Glaucoma Hyperlipidemia Hypertension <Radha Owen APRN - Last Filed: 03/16/24 16:39> Family History Family History: Family History Mother Diabetes mellitus Grandparent No problems noted. <Radha Owen APRN - Last Filed: 03/16/24 16:39> Social History Social History: Social History Smoking packs per day: 0.5 Smoking cigarettes per day: 10.0 Years smoked: 40 Smoking pack-years: 20.00 Smoking status: Current every day smoker Tobacco type: cigarettes Second hand tobacco smoke exposure: Yes Alcohol intake: unknown Substance use: never Substance use type: does not use Do You Feel Safe in your Home?: Yes Lack of Transportation: YES Lack of Food: Sometimes True Current Housing: I Do Not Have Housing Concerned About Future Housing: YES Difficulty Paying Gas/Electric Bills: YES Difficulty Paying for Meds: YES Currently Unemployed: No Education: High School Diploma/GED Difficulty w/ Childcare or Family Care: No Living arrangements: with family Spiritual care concerns: No <Radha Owen APRN - Last Filed: 03/16/24 16:39> Exam Narrative: GENERAL: Well-appearing, well-nourished, and in no acute distress. HEAD: Normocephalic, atraumatic. EYES: PERRLA and EOMI. ENT: Nares clear, no rhinorrhea or epistaxis. Mucous membranes moist. NECK: Supple. CHEST: Clear to auscultation. No respiratory distress. HEART: Regular rate and rhythm. No murmur heard. Normal peripheral pulses. ABDOMEN: Soft, nontender, nondistended, normal active bowel sounds. EXTREMITIES: Normal range of motion. No edema. SKIN: Warm, dry, no rash. NEURO: No focal deficits. Alert and oriented x3. PSYCH: Normal mood and affect. <Remberto Ty MD - Last Filed: 03/16/24 22:47> Course Vital Signs Vital signs: Vital Signs Temperature 36.6 C 03/16/24 14:59 Pulse Rate 64 03/16/24 14:59 Respiratory Rate 18 03/16/24 14:59 Blood Pressure 215/81 H 03/16/24 14:59 Pulse Oximetry 96 03/16/24 14:59 Oxygen Delivery Room Air 03/16/24 14:59 Temperature 36.5 C 03/16/24 19:00 Pulse Rate 81 03/16/24 19:00 Respiratory Rate 18 03/16/24 19:00 Blood Pressure 125/70 03/16/24 19:00 Pulse Oximetry 96 03/16/24 19:00 Oxygen Delivery Room Air 03/16/24 14:59 <Radha Owen APRN - Last Filed: 03/16/24 16:39> Vital Signs Temperature 36.6 C 03/16/24 14:59 Pulse Rate 64 03/16/24 14:59 Respiratory Rate 18 03/16/24 14:59 Blood Pressure 215/81 H 03/16/24 14:59 Pulse Oximetry 96 03/16/24 14:59 Oxygen Delivery Room Air 03/16/24 14:59 Temperature 36.5 C 03/16/24 19:00 Pulse Rate 81 03/16/24 19:00 Respiratory Rate 18 03/16/24 19:00 Blood Pressure 125/70 03/16/24 19:00 Pulse Oximetry 96 03/16/24 19:00 Oxygen Delivery Room Air 03/16/24 14:59 <Remberto Ty MD - Last Filed: 03/16/24 22:47> MDM - Weakness MDM Narrative Medical decision making narrative: Differential diagnosis includes ACS, noncompliance, electrolyte abnormality, EKG showed no acute ischemic changes initial troponin 0.013 repeat troponin is 0.018 patient is currently homeless and the case was discussed with the hospitalist for observation admission <Remberto Ty MD - Last Filed: 03/16/24 22:47> Lab Data Result diagrams: 03/16/24 15:50 03/16/24 17:31 <Radha Owen APRN - Last Filed: 03/16/24 16:39> Labs: Lab Results 03/16/24 03/16/24 03/16/24 Range/Units 15:50 17:31 21:20 WBC 8.5 (4.5-10.0) K/mm3 RBC 5.27 (4.6-6.20) M/mm3 Hgb 16.2 (14.0-18.0) g/dL Hct 48.0 (42.0-52.0) % MCV 91.1 (80-100) fl MCH 30.7 (26-34) pg MCHC 33.8 (32-36) g/dl RDW 13.3 (11.5-14.5) % Plt Count 243 (150-375) k/mm3 MPV 11.3 H (7.4-10.4) fl Immature Gran % (Auto) 0.2 (0-0.5) % Neut % (Auto) 76.5 H (45.5-73.1) % Lymph % (Auto) 15.1 L (18.3-44.2) % [place] % (Auto) 6.6 (2.6-8.5) % Eos % (Auto) 0.9 (0-4.4) % Baso % (Auto) 0.7 (0.2-1.2) % Lymph # (Auto) 1.28 (0.9-3.2) K/mm3 [place] # (Auto) 0.6 (0.1-0.6) K/mm3 Eos # (Auto) 0.1 (0-0.3) K/mm3 Baso # (Auto) 0.1 (0.0-0.1) K/mm3 Abs Immat Gran (auto) 0.02 (0.00-0.031) K/mm3 Absolute Neuts (auto) 6.5 (1.3-6.7) K/mm3 Absolute Nucleated RBC 0.000 (0.0-0.012) K/mm3 Nucleated RBC % 0.0 (0.0-0.2) % PT 13.2 (11.1-14.7) Seconds INR 1.0 APTT 21.9 L (22.3-36.8) Seconds Sodium 138 (137-145) mmol/L Potassium 3.5 (3.4-5.0) mmol/L Chloride 108 H (98-107) mmol/L Carbon Dioxide 25 (22-30) mmol/L Anion Gap 5 (4-12) mmol/L BUN 16 (9-20) mg/dL Creatinine 1.00 (0.7-1.3) mg/dL Estim Creat Clear Calc 70 ml/min Estimated GFR > 60 (59 - ) Glucose 160 H (65-110) mg/dL Hemoglobin A1c 7.8 H (<5.7) % Calcium 9.0 (8.4-10.2) mg/dL Total Bilirubin 0.8 (0.2-1.3) mg/dL AST 27 (17-59) U/L ALT 17 (6-50) U/L Alkaline Phosphatase 85 (38-126) U/L Troponin I 0.013 0.018 D (0.000-0.034) ng/mL Total Protein 6.0 L (6.3-8.2) g/dL Albumin 3.9 (3.5-5.1) g/dL Lipase 46 (23-300) U/L <Radha Owen, CERTIFIED LEGAL SECRETARY SPECIALIST - Last Filed: 03/16/24 16:39> Lab Results 03/16/24 03/16/24 03/16/24 Range/Units 15:50 17:31 21:20 WBC 8.5 (4.5-10.0) K/mm3 RBC 5.27 (4.6-6.20) M/mm3 Hgb 16.2 (14.0-18.0) g/dL Hct 48.0 (42.0-52.0) % MCV 91.1 (80-100) fl MCH 30.7 (26-34) pg MCHC 33.8 (32-36) g/dl RDW 13.3 (11.5-14.5) % Plt Count 243 (150-375) k/mm3 MPV 11.3 H (7.4-10.4) fl Immature Gran % (Auto) 0.2 (0-0.5) % Neut % (Auto) 76.5 H (45.5-73.1) % Lymph % (Auto) 15.1 L (18.3-44.2) % [place] % (Auto) 6.6 (2.6-8.5) % Eos % (Auto) 0.9 (0-4.4) % Baso % (Auto) 0.7 (0.2-1.2) % Lymph # (Auto) 1.28 (0.9-3.2) K/mm3 [place] # (Auto) 0.6 (0.1-0.6) K/mm3 Eos # (Auto) 0.1 (0-0.3) K/mm3 Baso # (Auto) 0.1 (0.0-0.1) K/mm3 Abs Immat Gran (auto) 0.02 (0.00-0.031) K/mm3 Absolute Neuts (auto) 6.5 (1.3-6.7) K/mm3 Absolute Nucleated RBC 0.000 (0.0-0.012) K/mm3 Nucleated RBC % 0.0 (0.0-0.2) % PT 13.2 (11.1-14.7) Seconds INR 1.0 APTT 21.9 L (22.3-36.8) Seconds Sodium 138 (137-145) mmol/L Potassium 3.5 (3.4-5.0) mmol/L Chloride 108 H (98-107) mmol/L Carbon Dioxide 25 (22-30) mmol/L Anion Gap 5 (4-12) mmol/L BUN 16 (9-20) mg/dL Creatinine 1.00 (0.7-1.3) mg/dL Estim Creat Clear Calc 70 ml/min Estimated GFR > 60 (59 - ) Glucose 160 H (65-110) mg/dL Hemoglobin A1c 7.8 H (<5.7) % Calcium 9.0 (8.4-10.2) mg/dL Total Bilirubin 0.8 (0.2-1.3) mg/dL AST 27 (17-59) U/L ALT 17 (6-50) U/L Alkaline Phosphatase 85 (38-126) U/L Troponin I 0.013 0.018 D (0.000-0.034) ng/mL Total Protein 6.0 L (6.3-8.2) g/dL Albumin 3.9 (3.5-5.1) g/dL Lipase 46 (23-300) U/L <Remberto Ty MD - Last Filed: 03/16/24 22:47> Discharge Plan Discharge Clinical Impression: Chest pain, Diabetes <Radha Owen APRN - Last Filed: 03/16/24 16:39> Patient Disposition: Still a Patient <Radha Owen APRN - Last Filed: 03/16/24 16:39> Condition: Stable <Radha Owen APRN - Last Filed: 03/16/24 16:39> Prescriptions: No Action brimonidine 0.2 % drops 2 drp ophthalmic (eye) DIRECTED losartan 100 mg tablet 100 mg PO DAILY insulin glargine [Lantus Solostar U-100 Insulin] 100 unit/mL (3 mL) insulin pen 24 unit SUBCUT DAILY neomycin-polymyxin B-dexameth 3.5mg/mL-10,000 unit/mL-0.1 % drops,suspension 1 drp LEFT EYE Q6H 7 Days Qty: 5 0RF doxycycline hyclate 100 mg capsule 100 mg PO BID 7 Days Qty: 14 0RF (DME) blood sugar diagnostic [OneTouch Ultra Blue Test Strip] Strip See Rx Instructions .ROUTE .MEDSUPPLY Qty: 10 Rx Instructions: As directed (DME) lancets [TRUEplus Lancets] 30 gauge misc See Rx Instructions .ROUTE .MEDSUPPLY Qty: 25 Rx Instructions: As directed aspirin 81 mg tablet,delayed release (DR/EC) 81 mg PO DAILY atorvastatin 40 mg tablet 40 mg PO DAILY Qty: 90 2RF ginkgo biloba 40 mg tablet 40 mg PO BID Rx Instructions: give with meal/snack carvedilol 25 mg tablet 25 mg PO Q12H Rx Instructions: must administer with a meal/food hydralazine 10 mg tablet 10 mg PO DAILY hydrochlorothiazide 12.5 mg capsule 12.5 mg PO DAILY cyclobenzaprine 10 mg tablet 10 mg PO TID PRN (Reason: muscle spasm) Qty: 14 0RF hydrocodone-acetaminophen 5-325 mg tablet 1 tablet PO Q6H PRN (Reason: pain) 3 Days Qty: 14 0RF omega 5-suh-uoi-fish oil [Fish Oil] 1,000 mg (120 mg-180 mg) capsule 1 cap PO BID furosemide 20 mg tablet 20 mg PO QAM Qty: 30 5RF <Radha Owen APRN - Last Filed: 03/16/24 16:39> Follow-up/Referrals: Irineo Cruz MD [Primary Care Provider] - <Radha Owen APRN - Last Filed: 03/16/24 16:39> Time of Disposition: 22:47 <Radha Owen APRN - Last Filed: 03/16/24 16:39> 22:47 <Remberto Ty MD - Last Filed: 03/16/24 22:47>
--- NOTE | 2024-03-16 17:09 | PC.NURSE ---
Patient took his home blood pressure medication per verbal from Ni
[2024-03-16] MEDS: ASPIRIN 81 MG CHEWABLE TABLET 324 MG PO (17:23)
[2024-03-16 17:51] LABS: Alanine Aminotransferase 17 U/L (6-50); Albumin Level 3.9 g/dL (3.5-5.1); Alkaline Phosphatase 85 U/L (38-126); Anion Gap 5 mmol/L (4-12); Aspartate Amino Transferase 27 U/L (17-59); Bilirubin,Total 0.8 mg/dL (0.2-1.3); Blood Urea Nitrogen 16 mg/dL (9-20); Carbon Dioxide 25 mmol/L (22-30); Chloride 108 mmol/L (98-107); Estimated CRCL calculation 70 ml/min; Estimated Glomerular Filt Rate > 60; Glucose 160 mg/dL (65-110); Lipase 46 U/L (23-300); Potassium 3.5 mmol/L (3.4-5.0); Sodium 138 mmol/L (137-145)
[2024-03-16 18:03] LABS: Troponin I 0.013 ng/mL (0.000-0.034)
--- NOTE | 2024-03-16 20:21 | PC.NURSE ---
pt refusing to be placed in a gown, now pt also requesting a different room as he does not have a tv for him to listen to.
[2024-03-16 21:17] LABS: Hemoglobin A1C 7.8 % (<5.7)
--- NOTE | 2024-03-16 21:25 | PC.NURSE ---
pt requesting to speak to someone - he wants to be admitted for custodial or assisted living placement. BRIAN Ty notified.
--- NOTE | 2024-03-16 21:26 | ECG_ITS ---
Test Date: 2024-03-16 21:27:53 Measurements Intervals [place] Rate: 61 P: 16 FL: 167 QRS: 16 QRSD: 114 T: 66 QT: 423 QTc: 429 Interpretive Statements SINUS RHYTHM MODERATE INTRAVENTRICULAR CONDUCTION DELAY [110+ ms QRS DURATION] NONSPECIFIC T-WAVE ABNORMALITY Compared to ECG 03/16/2024 15:39:20 No significant changes Electronically Signed On 03-17-2024 15:12:47 HOME CARE CONSULTANT by Filemon Sharma M.D.
[2024-03-16 22:00] LABS: Troponin I 0.018 ng/mL (0.000-0.034)
--- NOTE | 2024-03-16 23:55 | ADMGEN ---
This patient, Manolo Becerra, was admitted to Medical Room 249-01. Patient/family oriented to hospital policies and general routines including ID bracelet, bed and alarms, visiting hours, pain management, procedures, bathroom and other care routines, personal items, smoking policy, room service/diet, and visiting hours. Information on how to activate the Rapid Response Team has been discussed. Patient/Family are encouraged to report perceived risks to care and to ask questions if they do not understand what they are told or what they should do.
[2024-03-17] VITALS (15 sets, daily range): BP systolic 145–207; BP diastolic 56–82; PULSE 49–95; RESP 14–19; TEMP 36.2–37.2; O2SAT 96–100
--- NOTE | 2024-03-17 | EST_ITS ---
Patient Info Name: Manolo Becerra Age: 63 years : 1960 Gender: Male Ht: 71 in Wt: 199 lbs BSA: 2.14 m2 HR: 41 bpm BP: 175 / 67 mmHg Exam Date: 03/17/2024 11:45 AM Exam Location: Echo Lab Patient Status: Inpatient Admit Date: 03/16/2024 Staff Ordering Physician: Frank Jurado MD Attending Provider: Cortney Acosta PA-C Exercise Technologist: Nancy Bravo [facility] Exercise Physician: Shiraz Lerma DO Exam Type: CA stress nerissa w NM Study Info A regadenoson stress test was performed. Summary 1. 1. Negative lexiscan stress test for ischemic ST changes by ECG criteria. 2. 2. Baseline hypertension. 3. 3. Nuclear scan to follow and will be reported separately. Please correlate with it. 4. 4. Patient informed of the above results. Protocol: Lexiscan Stress ECG Details Stage: REST Duration (min): 2 min : 10 sec HR (bpm): 46 SBP (mmHg): 175 DBP (mmHg): 67 Stage: REST Duration (min): 4 min : 9 sec HR (bpm): 50 SBP (mmHg): 175 DBP (mmHg): 67 Stage: STAGE 1 Duration (min): 1 min : 0 sec HR (bpm): 48 SBP (mmHg): 175 DBP (mmHg): 67 Stage: RECOVERY Duration (min): 1 min : 0 sec HR (bpm): 62 SBP (mmHg): 177 DBP (mmHg): 72 Stage: RECOVERY Duration (min): 2 min : 0 sec HR (bpm): 56 SBP (mmHg): 177 DBP (mmHg): 72 Stage: RECOVERY Duration (min): 3 min : 0 sec HR (bpm): 56 SBP (mmHg): 177 DBP (mmHg): 72 Stage: RECOVERY Duration (min): 4 min : 0 sec HR (bpm): 54 SBP (mmHg): 170 DBP (mmHg): 69 Stage: RECOVERY Duration (min): 5 min : 0 sec HR (bpm): 62 SBP (mmHg): 170 DBP (mmHg): 69 Stage: RECOVERY Duration (min): 5 min : 8 sec HR (bpm): 59 SBP (mmHg): 170 DBP (mmHg): 69 Rest HR: 50 bpm Peak HR: 65 bpm Rest Sys BP: 175 mmHg Peak Sys BP: 177 mmHg Max Pred HR: 156 bpm % Max Pred HR: 42 % Target HR: 133 bpm Max RPP: 11,505 bpm*mmHg Termination Reason: Completed protocol Cardiac Symptoms: Shortness of breath Total Time: 1 min : 0 sec Rest Gonzalez BP: 67 mmHg Peak Gonzalez BP: 72 mmHg Total Dose: 0.4 mg Resting ECG Sinus bradycardia. Stress ECG No ST changes. Arrhythmias None. Report Signatures
--- NOTE | 2024-03-17 00:14 | PC.NURSE ---
Patient states he has not been able to take most medication for a few days ; Per external medication history, medications have not been filled since 2022; patient states he has been using [facility] and that eye drops were received a week ago. Patient states he does not check his blood sugars at home because he does not have access to a meter. Admission report to JOSE DAVID Hamilton
[2024-03-17] MEDS: MELATONIN 5 MG TABLET PO ×2 (00:37→20:13)
[2024-03-17 00:48] LABS: Troponin I 0.023 ng/mL (0.000-0.034)
--- NOTE | 2024-03-17 00:54 | P.HP_ITS ---
H&P: HPI History of Present Illness Date/Time: 03/17/24 00:54 Chief Complaint: 1. Chest pain 2. Homelessness Narrative: Manolo Becerra is a 63yo M with a mHx significant for nicotine dependence, blindness, IDDM2, dyslipidemia, PAD, While he currently resides in his car due to lack of heat in his trailer, he over the last week has been experiencing left sided intermittent chest pains. He describes them as sharp, localized, rated 5-8 in intensity, present at rest and on exertion; poorly alleviated by rest; associated with dizziness, anxiety, malaise and poor execution of her ADLs. He denies cough, fevers, chills, PND, Orthopnea, palpitations, nausea or vomiting. 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 Work-up findings: EKG showed no acute ischemic changes Initial troponin 0.013>>0.018 CXR: Cardiomegaly without any pulmonary changes. He will be admitted, evaluated and managed for chest pain and homelessness Review of Systems Constitutional: Constitutional: Denies difficulty sleeping, Reports fatigue, Reports lethargy, Denies night sweats and Denies weakness ENT: Reports Normal hearing present, Denies dysphagia, Denies epistaxis, Denies nasal congestion, Denies nasal discharge and Denies tinnitus Cardiovascular: Cardiovascular: Denies pedal edema, Denies leg edema, Denies lightheadedness and Denies palpitations Respiratory: Respiratory: Reports no additional respiratory complaints Gastrointestinal: Gastrointestinal: Reports no additional gastrointestinal complaints Genitourinary: Genitourinary: Reports no additional male genitourinary complaints Musculoskeletal: Musculoskeletal: Reports no additional musculoskeletal complaints Integumentary/Breasts: Skin/Breast: Reports system reviewed and no additional complaints, except as docu Neurologic: Reports system reviewed and no additional complaints, except as documented [facility] Past Medical History Medical History Anxiety Depression Diabetes mellitus Glaucoma Hyperlipidemia Hypertension Family History Family History Mother Diabetes mellitus Grandparent No problems noted. Social History Social History Smoking packs per day: 0.5 Smoking cigarettes per day: 10.0 Years smoked: 40 Smoking pack-years: 20.00 Smoking status: Current every day smoker Second hand tobacco smoke exposure: Yes Alcohol intake: unknown Substance use: never Substance use type: does not use Do You Feel Safe in your Home?: Yes Lack of Transportation: YES Lack of Food: Sometimes True Current Housing: I Do Not Have Housing Concerned About Future Housing: YES Difficulty Paying Gas/Electric Bills: YES Difficulty Paying for Meds: YES Currently Unemployed: No Education: High School Diploma/GED Difficulty w/ Childcare or Family Care: No Living arrangements: with family Spiritual care concerns: No Meds Home Medications and Allergies Home Medications Medication Instructions Recorded Confirmed Type blood sugar diagnostic (OneTouch #10 ea 08/19/19 03/17/24 History Ultra Blue Test Strip) lancets 30 gauge (TRUEplus Lancets) #25 ea 08/19/19 03/17/24 History omega 2-ukl-dbt-fish oil 1,000 mg 1 cap PO BID 12/02/19 03/17/24 History (120 mg-180 mg) capsule (Fish Oil) carvedilol 25 mg tablet 25 mg PO Q12H 05/12/20 03/17/24 History ginkgo biloba 40 mg tablet 40 mg PO BID 05/12/20 03/17/24 History insulin glargine 100 unit/mL (3 24 unit subcut DAILY 11/24/20 03/17/24 History mL) subcutaneous pen (Lantus Solostar U-100 Insulin) losartan 100 mg tablet 100 mg PO DAILY 11/24/20 03/17/24 History iohyuuju-sfmgdncos-fokyvwba 3.5 1 drp LEFT EYE Q6H 7 days #5 mL 07/19/22 03/17/24 Rx mg/mL-10,000 unit/mL-0.1% eye drops hydralazine 10 mg tablet 10 mg PO DAILY 04/20/23 03/17/24 History aspirin 81 mg tablet,delayed 81 mg PO DAILY 04/24/23 03/17/24 History release atorvastatin 40 mg tablet 40 mg PO DAILY #90 tabs 04/24/23 03/17/24 Rx furosemide 20 mg tablet 20 mg PO QAM #30 tabs 05/27/23 03/17/24 Rx brimonidine 0.2 % eye drops 1 drp LEFT EYE HS 03/17/24 03/17/24 History dorzolamide 2 % eye drops 1 drp LEFT EYE PRN PRN Dry Eye(S) 03/17/24 03/17/24 History ferrous sulfate 325 mg (65 mg 325 mg PO DAILY 03/17/24 03/17/24 History iron) tablet (FeroSul) latanoprost 0.005 % eye drops 1 drp LEFT EYE DAILY 03/17/24 03/17/24 History timolol maleate 0.5 % eye drops 1 drp LEFT EYE DAILY 03/17/24 03/17/24 History Allergies Allergy/AdvReac Type Severity Reaction Status Date / Time No Known Allergies Allergy Verified 03/17/24 00:05 Vital Signs Vital Signs - 24 hr 03/16/24 14:59 03/16/24 17:29 03/16/24 19:00 Temperature 97.8 F 97.7 F Pulse Rate 64 71 81 Respiratory Rate 18 17 18 Blood Pressure 215/81 H 152/61 H 125/70 Pulse Oximetry 96 97 96 Oxygen Delivery Room Air 03/16/24 20:16 03/16/24 20:17 03/16/24 20:30 Temperature Pulse Rate 72 70 76 Respiratory Rate 17 14 23 H Blood Pressure 102/71 Pulse Oximetry Oxygen Delivery 03/16/24 20:31 03/16/24 20:45 03/16/24 20:46 Temperature Pulse Rate 76 72 73 Respiratory Rate 20 19 21 H Blood Pressure 152/83 H 154/73 H Pulse Oximetry Oxygen Delivery 03/16/24 21:00 03/16/24 21:01 03/16/24 21:15 Temperature Pulse Rate 72 72 80 Respiratory Rate 14 12 12 Blood Pressure 160/79 H Pulse Oximetry 97 Oxygen Delivery 03/16/24 21:16 03/16/24 21:30 03/16/24 21:31 Temperature Pulse Rate 69 62 61 Respiratory Rate 15 25 H 23 H Blood Pressure 164/79 H 163/80 H Pulse Oximetry 96 Oxygen Delivery 03/16/24 23:29 03/17/24 00:04 03/17/24 00:00 Temperature Pulse Rate 72 67 67 Respiratory Rate 14 14 Blood Pressure 182/82 H Pulse Oximetry 99 99 Oxygen Delivery Room Air Exam Const: General: comfortable and no acute distress; No in distress HENMT: Mouth: Yes moist mucous membranes Eyes: General: appearance normal, both eyes and all related structures Sclera: sclerae normal Other: Blindness in right eye Neck: Neck: supple Thyroid: thyroid normal Resp: Effort & Inspection: normal respiratory effort Auscultation: clear to auscultation bilaterally Cardio: Rate: regular rate Rhythm: regular rhythm GI: GI Palp: Yes Soft to palpation Auscultation: normal bowel sounds Skin: General skin exam: normal color Neuro: General: gait normal Motor exam (neuro): 5/5 motor strength present throughout, Normal motor muscle tone present throughout and Abnormal motor strength present Extrem: General: normal to inspection Psych: Mental Status: mental status grossly normal Affect: normal affect H&P: Results Labs Labs: Short CBC 03/16/24 Range/Units 15:50 WBC 8.5 (4.5-10.0) K/mm3 Hgb 16.2 (14.0-18.0) g/dL Hct 48.0 (42.0-52.0) % Plt Count 243 (150-375) k/mm3 BMP 03/16/24 17:31 Sodium 138 Potassium 3.5 Chloride 108 H Carbon Dioxide 25 BUN 16 Creatinine 1.00 Glucose 160 H Calcium 9.0 Cardiac Enzymes 03/16/24 03/16/24 03/17/24 Range/Units 17:31 21:20 00:12 Troponin I 0.013 0.018 D 0.023 D (0.000-0.034) ng/mL Liver Function 03/16/24 Range/Units 17:31 Total Bilirubin 0.8 (0.2-1.3) mg/dL AST 27 (17-59) U/L ALT 17 (6-50) U/L Alkaline Phosphatase 85 (38-126) U/L Albumin 3.9 (3.5-5.1) g/dL ECG Attestation: I personally reviewed and interpreted this ECG as follows: (SR; non-specific T-wave abnormality; no overt findings concerning for ischemial G/r 63. QTc 416) Assessment and Plan Assessment and plan (1) Chest pain: Code(s): R07.9 - Chest pain, unspecified Status: Acute (2) Diabetes: Code(s): E11.9 - Type 2 diabetes mellitus without complications Status: Acute (3) PAD (peripheral artery disease): Code(s): I73.9 - Peripheral vascular disease, unspecified Status: Acute (4) [place] (obstructive sleep apnea): Code(s): G47.33 - Obstructive sleep apnea (adult) (pediatric) Status: Acute (5) Obesity: Code(s): E66.9 - Obesity, unspecified Status: Acute (6) Tobacco abuse: Code(s): Z72.0 - Tobacco use Status: Acute (7) Hyperlipidemia: Code(s): E78.5 - Hyperlipidemia, unspecified Status: Acute Plan Acute and principal conditions 1. Chest pain. maybe ACS 2. Homelessness a. Trend troponin+ECG b. NTG, ASA, Morphine c. Cardiology consult; Telemetry monitoring d. CM/SW for placement e. Stress test in AM Chronic and stable conditions. 1. Obesity, BMI 27 2. Nicotine dependence. Cessation counseling, 3 minutes 3. Dyslipidemia. on Stain 4. PAD. 5. Glaucoma 6. Right eye blindness. 7. Hypertension. Miscellaneous care. 1. Code status. Full 2. Nutrition. NPO 3. VTE prophylaxis. SCDs; TIERNEY
[2024-03-17 05:42] LABS: Basophils Absolute Auto 0.1 K/mm3 (0.0-0.1); Basophils Percent Auto 0.7 % (0.2-1.2); Eosinophils Absolute Auto 0.1 K/mm3 (0-0.3); Eosinophils Percent Auto 1.6 % (0-4.4); Hematocrit 41.9 % (42.0-52.0); Hemoglobin 13.8 g/dL (14.0-18.0); Immature Granulocyte Absolute 0.02 K/mm3 (0.00-0.031); Immature Granulocyte Percent A 0.2 % (0-0.5); Lymphocytes Absolute Auto 1.87 K/mm3 (0.9-3.2); Lymphocytes Percent Auto 22.7 % (18.3-44.2); Mean Corpuscular HGB Conc 32.9 g/dl (32-36); Mean Corpuscular Hemoglobin 30.4 pg (26-34); Mean Corpuscular Volume 92.3 fl (80-100); Mean Platelet Volume 10.8 fl (7.4-10.4); Monocytes Absolute Auto 0.7 K/mm3 (0.1-0.6); Monocytes Percent Auto 8.3 % (2.6-8.5); Neutrophils Absolute Auto 5.5 K/mm3 (1.3-6.7); Neutrophils Percent Auto 66.5 % (45.5-73.1); Platelet Count Result 182 k/mm3 (150-375); Red Blood Count 4.54 M/mm3 (4.6-6.20); Red Cell Distribution Width 13.2 % (11.5-14.5); White Blood Count 8.2 K/mm3 (4.5-10.0)
[2024-03-17 05:53] LABS: Alanine Aminotransferase 16 U/L (6-50); Albumin Level 3.5 g/dL (3.5-5.1); Alkaline Phosphatase 80 U/L (38-126); Anion Gap 3 mmol/L (4-12); Aspartate Amino Transferase 21 U/L (17-59); Bilirubin,Total 0.5 mg/dL (0.2-1.3); Blood Urea Nitrogen 17 mg/dL (9-20); Calcium 8.9 mg/dL (8.4-10.2); Carbon Dioxide 29 mmol/L (22-30); Chloride 107 mmol/L (98-107); Estimated CRCL calculation 64 ml/min; Estimated Glomerular Filt Rate > 60; Glucose 154 mg/dL (65-110); Potassium 3.2 mmol/L (3.4-5.0); Sodium 139 mmol/L (137-145)
--- NOTE | 2024-03-17 07:58 | P.PNIM_ITS ---
Progress Note: A&P Assessment and Plan (1) Chest pain: Code(s): R07.9 - Chest pain, unspecified Status: Acute Assessment and Plan: Patient states he has intermittent central chest pain that he describes as a fl uttering feeling. Unable to state how long this has been going on, how long these episodes last, or what he does to relieve them. - Troponin negative x3 - EKG: sinus rhythm HR 61 with no signs of ischemia - Lexiscan stress test: LVEF 53% with no definite ischemia or infarct - Stress test NM: negative for ischemia ST changes by EKG criteria - Continue statin, asa and carvedilol as prescribed - Telemetry - Monitor vital signs, I&Os, chest pain, shortness of breath and patient is a fall risk - Monitor PTT, serial troponins, Serum electrolytes, and cbc - Keep serum potassium >4 and keep magnesium >2 - Consider cardiology consult depending on test results, appreciate assistance and recommendations (2) Diabetes: Code(s): E11.9 - Type 2 diabetes mellitus without complications Status: Acute Assessment and Plan: - hypoglycemia protocol - POC blood glucose ACHS - home medication - lantus 24 units HS - correct regimen ordered - low dose SSI TIDWM and resumed lantus 24 units HS - A1C 7.8 (3) PAD (peripheral artery disease): Code(s): I73.9 - Peripheral vascular disease, unspecified Status: Acute Assessment and Plan: Chronic, continue home medication. (4) Hypertension: Code(s): I10 - Essential (primary) hypertension Status: Acute Assessment and Plan: Chronic, continue home medications. - Losartan 100 mg daily - Carvedilol 25 mg BID - Lasix 20 mg daily - Hydralazine 10 mg TID - Monitor (5) Hyperlipidemia: Code(s): E78.5 - Hyperlipidemia, unspecified Status: Acute Assessment and Plan: Chronic, continue home medication. - Atorvastatin 40 mg daily - Monitor (6) [place] (obstructive sleep apnea): Code(s): G47.33 - Obstructive sleep apnea (adult) (pediatric) Status: Acute (7) Tobacco abuse: Code(s): Z72.0 - Tobacco use Status: Acute Assessment and Plan: Encourage smoking cessation. (8) Obesity: Code(s): E66.9 - Obesity, unspecified Status: Acute Assessment and Plan: Encouraged healthy diet and exercise. (9) Homeless: Code(s): Z59.00 - Homelessness unspecified Status: Acute Assessment and Plan: Care coordination consulted. Time Spent With Patient Time with patient: 25 - 35 minutes Subjective Date/time seen: 03/17/24 07:58 Interval history: 63 year old male with past medical history of HTN, HLD, diabetes mellitus type 2, aortic dissection s/p repair, PAD, and nicotine dependence presents to the hospital for chest pain. Patient is pleasant lying in bed. Patient states he has intermittent central chest pain that he describes as a fluttering feeling. Unable to state how long this has been going on, how long these episodes last, or what he does to relieve them. Stress test negative. Remains on tele. He has no complaints at time of assessment, denying chest pain, shortness of breath, palpitations, nausea/vomiting and abdominal pain. Care coordination following for possible placement. Review of Systems Review of Systems: All systems reviewed & are unremarkable except as noted in HPI and below Exam Narrative: AF HR 61 RR 16 Spo2 96 BP 171/56 General: male in no acute respiratory distress who is nontoxic appearing, lying semi recumbent in bed. HEENT: Normocephalic. Atraumatic. Extraocular movement intact. Sclera clear and anicteric. No facial asymmetry. Neck: Neck was supple. No dominant adenopathy, thyromegaly or masses. 2+ carotid upstrokes without bruits. Chest: Lungs are clear to auscultation bilaterally. No wheezes or crackles. CV: Heart was regular rate and rhythm. S1/S2. No murmurs, gallops, or rubs. Abd: Abdomen was soft. Nontender. Nondistended. Positive bowel sounds. No organomegaly or masses. Ext: No clubbing, cyanosis, or edema. 2+ DP pulses bilaterally. Neuro: Patient is alert and oriented x4. Cranial nerves 2-12 are intact. Speech is clear. Objective Data Vital Signs Vital Signs: Vital Signs - 24 hr 03/16/24 14:59 03/16/24 17:29 03/16/24 19:00 Temperature 97.8 F 97.7 F Pulse Rate 64 71 81 Respiratory Rate 18 17 18 Blood Pressure 215/81 H 152/61 H 125/70 Pulse Oximetry 96 97 96 Oxygen Delivery Room Air 03/16/24 20:16 03/16/24 20:17 03/16/24 20:30 Temperature Pulse Rate 72 70 76 Respiratory Rate 17 14 23 H Blood Pressure 102/71 Pulse Oximetry Oxygen Delivery 03/16/24 20:31 03/16/24 20:45 03/16/24 20:46 Temperature Pulse Rate 76 72 73 Respiratory Rate 20 19 21 H Blood Pressure 152/83 H 154/73 H Pulse Oximetry Oxygen Delivery 03/16/24 21:00 03/16/24 21:01 03/16/24 21:15 Temperature Pulse Rate 72 72 80 Respiratory Rate 14 12 12 Blood Pressure 160/79 H Pulse Oximetry 97 Oxygen Delivery 03/16/24 21:16 03/16/24 21:30 03/16/24 21:31 Temperature Pulse Rate 69 62 61 Respiratory Rate 15 25 H 23 H Blood Pressure 164/79 H 163/80 H Pulse Oximetry 96 Oxygen Delivery 03/16/24 23:29 03/17/24 00:04 03/17/24 00:00 Temperature Pulse Rate 72 67 67 Respiratory Rate 14 14 Blood Pressure 182/82 H Pulse Oximetry 99 99 Oxygen Delivery Room Air 03/16/24 23:40 03/17/24 04:00 03/17/24 06:00 Temperature 96.8 F L 98.2 F Pulse Rate 61 49 L 65 Respiratory Rate 18 16 Blood Pressure 166/60 H 155/82 H Pulse Oximetry 96 97 Oxygen Delivery Intake/Output Intake/Output: Intake & Output 03/14/24 03/15/24 03/16/24 03/17/24 23:59 23:59 23:59 23:59 Intake Total 300 Balance 300 Meds/Results Medications: Active Medications Generic Name Dose Route Start Last Admin Trade Name Freq PRN Reason Stop Dose Admin Acetaminophen 650 mg 03/16/24 22:47 Acetaminophen 325 Mg Tablet PO Q4H PRN Mild Pain (1-3) or Fever Aspirin 81 mg 03/17/24 08:00 Aspirin 81 Mg Chewable Tablet PO DAILY@0800 [facility] Dextrose 12.5 gm 03/16/24 22:47 Dextrose 50% 25 Gm/50 Ml Syringe IV PUSH PRN PRN Hypoglycemia Protocol Glucagon 1 mg 03/16/24 22:47 Glucagon For Inj 1 Mg Vial IM PRN PRN Hypoglycemia Protocol Glucose 15 gm 03/16/24 22:47 Glucose Oral Gel 15 Gm Of Glucse In 37.5 Gm Tube PO PRN PRN Hypoglycemia Protocol Dextrose 1,000 mls @ 100 mls/hr 03/16/24 22:47 Dextrose 5% 1,000 Ml IVPB PRN PRN Hypoglycemia Protocol Melatonin 5 mg 03/17/24 00:10 03/17/24 00:37 Melatonin 5 Mg Tablet PO 5 mg HS TIERNEY Administration Radiology Results: ITS Impressions Chest X-Ray 03/16/24 16:06 IMPRESSION: 1. Cardiomegaly. Labs Labs: Laboratory Results - last 24 hr 03/16/24 03/16/24 03/16/24 15:50 17:31 21:20 WBC 8.5 RBC 5.27 Hgb 16.2 Hct 48.0 MCV 91.1 MCH 30.7 MCHC 33.8 RDW 13.3 Plt Count 243 MPV 11.3 H Immature Gran % (Auto) 0.2 Neut % (Auto) 76.5 H Lymph % (Auto) 15.1 L [place] % (Auto) 6.6 Eos % (Auto) 0.9 Baso % (Auto) 0.7 Lymph # (Auto) 1.28 [place] # (Auto) 0.6 Eos # (Auto) 0.1 Baso # (Auto) 0.1 Abs Immat Gran (auto) 0.02 Absolute Neuts (auto) 6.5 Absolute Nucleated RBC 0.000 Nucleated RBC % 0.0 PT 13.2 INR 1.0 APTT 21.9 L Sodium 138 Potassium 3.5 Chloride 108 H Carbon Dioxide 25 Anion Gap 5 BUN 16 Creatinine 1.00 Estim Creat Clear Calc 70 Estimated GFR > 60 Glucose 160 H Hemoglobin A1c 7.8 H Calcium 9.0 Total Bilirubin 0.8 AST 27 ALT 17 Alkaline Phosphatase 85 Troponin I 0.013 0.018 D Total Protein 6.0 L Albumin 3.9 Lipase 46 03/17/24 03/17/24 00:12 05:19 WBC 8.2 RBC 4.54 L Hgb 13.8 L Hct 41.9 L MCV 92.3 MCH 30.4 MCHC 32.9 RDW 13.2 Plt Count 182 MPV 10.8 H Immature Gran % (Auto) 0.2 Neut % (Auto) 66.5 Lymph % (Auto) 22.7 [place] % (Auto) 8.3 Eos % (Auto) 1.6 Baso % (Auto) 0.7 Lymph # (Auto) 1.87 [place] # (Auto) 0.7 H Eos # (Auto) 0.1 Baso # (Auto) 0.1 Abs Immat Gran (auto) 0.02 Absolute Neuts (auto) 5.5 Absolute Nucleated RBC 0.000 Nucleated RBC % 0.0 PT INR APTT Sodium 139 Potassium 3.2 L Chloride 107 Carbon Dioxide 29 Anion Gap 3 L BUN 17 Creatinine 1.10 Estim Creat Clear Calc 64 Estimated GFR > 60 Glucose 154 H Hemoglobin A1c Calcium 8.9 Total Bilirubin 0.5 AST 21 ALT 16 Alkaline Phosphatase 80 Troponin I 0.023 D Total Protein 6.0 L Albumin 3.5 Lipase
[2024-03-17 08:11] LABS: Glucose Point of Care 130 mg/dl (65-105)
[2024-03-17] MEDS: ASPIRIN 81 MG CHEWABLE TABLET PO (08:51)
[2024-03-17] MEDS: ATORVASTATIN 40 MG TABLET PO (08:52)
[2024-03-17] MEDS: POTASSIUM CHLORIDE 20 MEQ ER TABLET 40 MEQ PO (08:52)
[2024-03-17] MEDS: carvediloL 25 MG TABLET PO ×2 (08:52→20:13)
[2024-03-17] MEDS: LOSARTAN POTASSIUM 100 MG TABLET PO (08:53)
[2024-03-17] MEDS: FERROUS SULFATE 325 MG TABLET DR BY MOUTH (08:53)
[2024-03-17] MEDS: FUROSEMIDE 20 MG TABLET PO (08:53)
[2024-03-17] MEDS: hydrALAZINE 10 MG TABLET PO ×3 (08:53→20:13)
[2024-03-17 13:16] LABS: Glucose Point of Care 418 mg/dl (65-105)
[2024-03-17] MEDS: INSULIN ASPART (*BKC) 100 UNITS/ML 6 UNITS SUB-Q (13:44)
[2024-03-17 17:07] LABS: Glucose Point of Care 182 mg/dl (65-105)
[2024-03-17 20:41] LABS: Glucose Point of Care 254 mg/dl (65-105)
[2024-03-18] VITALS (7 sets, daily range): BP systolic 178–191; BP diastolic 60–75; PULSE 57–68; RESP 12–16; TEMP 36.6; O2SAT 95–97
--- NOTE | 2024-03-18 | ECHO_ITS ---
Patient Info Name: Manolo Becerra Age: 63 years : 1960 Gender: Male Ht: 71 in Wt: 199 lbs BSA: 2.14 m2 HR: 57 bpm BP: 178 / 60 mmHg Technical Quality: Poor Exam Date: 03/18/2024 10:49 AM Exam Location: Echo Lab Patient Status: Inpatient Admit Date: 03/16/2024 Staff Ordering Physician: Cortney Acosta PA-C [employer] Sales Representative: Artem Mendez RDCS Attending Provider: Cortney Acosta PA-C Referring Physician: Karla HERNANDEZ; Exam Type: CA echo doppler color flow Study Info Indications - CHEST PAIN Complete two-dimensional, color flow and Doppler transthoracic echocardiogram is performed. Reason for Poor Study: poor echocardiographic windows Summary 1. Complete two-dimensional, color flow and Doppler transthoracic echocardiogram is performed. 2. Left ventricular chamber dimension is normal. 3. Left ventricular systolic function is normal, estimated at 60-65%. 4. There is moderate concentric increased left ventricular wall thickness. 5. The left ventricular diastolic function is grade I diastolic dysfunction. 6. E/e' 18 is elevated. 7. Left atrial chamber dimension is severely enlarged. 8. Right atrial chamber dimension is mildly enlarged. 9. There is moderate aortic valve sclerosis. 10. The mitral valve has moderately calcified annulus. 11. There is mild mitral valve regurgitation. Left Ventricle E/e' 18 is elevated. Left ventricular chamber dimension is normal. Left ventricular systolic function is normal, estimated at 60-65%. There is moderate concentric increased left ventricular wall thickness. The left ventricular diastolic function is grade I diastolic dysfunction. Right Ventricle Right ventricular chamber dimension is normal. Right ventricular systolic function is normal. Left Atria Left atrial chamber dimension is severely enlarged. Right Atria Right atrial chamber dimension is mildly enlarged. Aortic Valve The aortic valve is trileaflet. There is moderate aortic valve sclerosis. There is no aortic valve stenosis. There is no aortic valve regurgitation. Pulmonic Valve There is no pulmonic regurgitation. Mitral Valve The mitral valve has moderately calcified annulus. There is no mitral valve stenosis. There is mild mitral valve regurgitation. Tricuspid Valve There is no tricuspid valve regurgitation. Pericardium/Pleural There is no pericardial effusion. Inferior Vena Cava Normal inferior vena cava with >50% collapse upon inspiration consistent with normal right atrial pressure, 5 mmHg. Aorta The aortic root size at the sinus of Valsalva is normal. Left Ventricular Outflow Tract Name Value Normal LVOT 2D LVOT Diameter 2.0 cm LVOT Doppler LVOT Peak Gradient 6 mmHg LVOT Mean Gradient 3 mmHg LVOT VTI 28 cm LVOT VTI/AV VTI Ratio 1.0 LVOT Stroke Volume 88 ml LVOT CO 4.4 l/min LVOT CI 2.1 l/min/m2 Pulmonic Valve Name Value Normal RVOT Doppler RVOT Peak Gradient 3 mmHg PV Doppler PV Peak Gradient 3 mmHg Mitral Valve Name Value Normal MV Doppler MV Peak Gradient 4 mmHg MV Mean Gradient 2 mmHg MV Decel Swift 282 cm/s2 MV PHT 77 ms MV Area (PHT) 2.9 cm2 4.0-5.0 MV Area (Cont Eq VTI) 1.9 cm2 MV Diastolic Function MV E Peak Velocity 75 cm/s MV A Peak Velocity 94 cm/s MV E/A 0.8 MV Decel Time 265 ms MV Annular TDI MV E/e' (Septal) 20.6 <=8.0 MV E/e' (Lateral) 16.1 <=8.0 MV E/e' (Average) 18.4 Tricuspid Valve Name Value Normal Estimated PAP/RSVP RA Pressure 5 mmHg <=5 Aorta Name Value Normal Ascending Aorta Ao Root Diameter (MM) 3.3 cm Ao Root Diam Index (MM) 1.5 cm/m2 Aortic Valve Name Value Normal AV Doppler AV Peak Velocity 128 cm/s AV Peak Gradient 7 mmHg AV Mean Gradient 4 mmHg AV VTI 30 cm AV Area (Cont Eq VTI) 3.0 cm2 >=3.0 AV Area (Cont Eq Samuel) 2.9 cm2 AV Regurgitation 2D LVOT Area 3.1 cm2 Ventricles Name Value Normal LV Dimensions 2D/MM IVS Diastolic Thickness (2D) 1.5 cm 0.6-1.0 LVID Diastole (2D) 5.2 cm 4.2-5.8 LVIW Diastolic Thickness (2D) 1.9 cm 0.6-1.0 LVID Systole (2D) 3.2 cm 2.5-4.0 LVOT Diameter 2.0 cm LV Mass (2D Cubed) 398.80 g 88.00-224.00 LV Mass Index (2D Cubed) 186 g/m2 49-115 Relative Wall Thickness (2D) 0.72 LV Fractional Shortening/Ejection Fraction 2D/MM LV Fractional Shortening (2D) 38 % 25-43 LV EF (2D Teicholz) 67 % 52-72 Atria Name Value Normal LA Dimensions LA Dimension (MM) 5.1 cm 3.0-4.1 LA Volume (4C A-L) 134 ml LA Volume (BP A-L) 125 ml RA Dimensions RA Area (4C) 22.0 cm2 <=18.0 Report Signatures
[2024-03-18 04:25] LABS: Glucose Point of Care 156 mg/dl (65-105)
[2024-03-18] MEDS: hydrALAZINE 10 MG TABLET PO ×2 (05:23→14:53)
[2024-03-18 06:05] LABS: Basophils Percent Auto 0.6 % (0.2-1.2); Eosinophils Absolute Auto 0.1 K/mm3 (0-0.3); Eosinophils Percent Auto 1.6 % (0-4.4); Hematocrit 42.2 % (42.0-52.0); Immature Granulocyte Absolute 0.02 K/mm3 (0.00-0.031); Immature Granulocyte Percent A 0.3 % (0-0.5); Lymphocytes Absolute Auto 1.28 K/mm3 (0.9-3.2); Lymphocytes Percent Auto 18.7 % (18.3-44.2); Mean Corpuscular HGB Conc 33.2 g/dl (32-36); Mean Corpuscular Hemoglobin 30.9 pg (26-34); Mean Corpuscular Volume 93.2 fl (80-100); Mean Platelet Volume 10.9 fl (7.4-10.4); Monocytes Absolute Auto 0.6 K/mm3 (0.1-0.6); Monocytes Percent Auto 8.6 % (2.6-8.5); Neutrophils Absolute Auto 4.8 K/mm3 (1.3-6.7); Neutrophils Percent Auto 70.2 % (45.5-73.1); Platelet Count Result 173 k/mm3 (150-375); Red Blood Count 4.53 M/mm3 (4.6-6.20); Red Cell Distribution Width 13.2 % (11.5-14.5); White Blood Count 6.8 K/mm3 (4.5-10.0)
[2024-03-18 06:16] LABS: Alanine Aminotransferase 15 U/L (6-50); Albumin Level 3.6 g/dL (3.5-5.1); Alkaline Phosphatase 76 U/L (38-126); Anion Gap 3 mmol/L (4-12); Aspartate Amino Transferase 20 U/L (17-59); Bilirubin,Total 0.6 mg/dL (0.2-1.3); Blood Urea Nitrogen 13 mg/dL (9-20); Calcium 8.9 mg/dL (8.4-10.2); Carbon Dioxide 28 mmol/L (22-30); Chloride 108 mmol/L (98-107); Estimated CRCL calculation 70 ml/min; Estimated Glomerular Filt Rate > 60; Glucose 190 mg/dL (65-110); Potassium 3.4 mmol/L (3.4-5.0); Sodium 139 mmol/L (137-145)
[2024-03-18 07:52] LABS: Glucose Point of Care 190 mg/dl (65-105)
[2024-03-18] MEDS: ATORVASTATIN 40 MG TABLET PO (08:52)
[2024-03-18] MEDS: FERROUS SULFATE 325 MG TABLET DR BY MOUTH (08:52)
[2024-03-18] MEDS: ASPIRIN 81 MG CHEWABLE TABLET PO (08:52)
[2024-03-18] MEDS: FUROSEMIDE 20 MG TABLET PO (08:52)
[2024-03-18] MEDS: LOSARTAN POTASSIUM 100 MG TABLET PO (08:52)
[2024-03-18] MEDS: carvediloL 25 MG TABLET PO (08:52)
[2024-03-18] MEDS: INSULIN GLARGINE (*BKC) 100 UNITS/ML 24 UNITS SUB-Q (08:56)
[2024-03-18 12:01] LABS: Glucose Point of Care 202 mg/dl (65-105)
--- NOTE | 2024-03-18 12:28 | P.DS_ITS ---
DS: Admitting Diagnosis Discharge Date 03/18 Admitting Diagnosis chest pain DS: Discharge Diagnosis Discharge Diagnosis (1) Chest pain: Code(s): R07.9 - Chest pain, unspecified Status: Acute (2) Diabetes: Code(s): E11.9 - Type 2 diabetes mellitus without complications Status: Acute (3) PAD (peripheral artery disease): Code(s): I73.9 - Peripheral vascular disease, unspecified Status: Acute (4) Hypertension: Code(s): I10 - Essential (primary) hypertension Status: Acute (5) Hyperlipidemia: Code(s): E78.5 - Hyperlipidemia, unspecified Status: Acute (6) [place] (obstructive sleep apnea): Code(s): G47.33 - Obstructive sleep apnea (adult) (pediatric) Status: Acute (7) Tobacco abuse: Code(s): Z72.0 - Tobacco use Status: Acute (8) Obesity: Code(s): E66.9 - Obesity, unspecified Status: Acute (9) Homeless: Code(s): Z59.00 - Homelessness unspecified Status: Acute DS: Summary Hospital Course Hospital Course: 63 year old male with past medical history of HTN, HLD, diabetes mellitus type 2, aortic dissection s/p repair, PAD, and nicotine dependence presents to the hospital for chest pain. Patient is pleasant lying in bed. Patient states he has intermittent central chest pain that he describes as a fluttering feeling. Unable to state how long this has been going on, how long these episodes last, or what he does to relieve them. Stress test negative. Remains on tele. He has no complaints at time of assessment, denying chest pain, shortness of breath, palpitations, nausea/vomiting and abdominal pain. Several issues were addressed: #chest pain Patient states he has intermittent central chest pain that he describes as a fluttering feeling. Unable to state how long this has been going on, how long these episodes last, or what he does to relieve them. - Troponin negative x3 - EKG: sinus rhythm HR 61 with no signs of ischemia - Lexiscan stress test: LVEF 53% with no definite ischemia or infarct - Stress test NM: negative for ischemia ST changes by EKG criteria - Continue statin, asa and carvedilol #t2dm home medication - lantus 24 units HS - correct regimen ordered - low dose SSI TIDWM and resumed lantus 24 units HS - A1C 7.8 Meds change: Metformin is added. 500 mg daily x 1 week, then BID. Will need BMP and hgA1C rechecked in 3 months. Goal for hgA1C: under 7 # htn - Losartan 100 mg daily - Carvedilol 25 mg BID - Lasix 20 mg daily - Hydralazine 10 mg TID # tobacco use - smoking cessation counseling completed # [place] - will need outpt f/u for CPAP Status at Discharge Functional status at discharge: independent ambulation Overall status at discharge: patient is progressing back to baseline Time Spent with Patient Time attestation: Total time spent providing and/or coordinating discharge services: Time spent: Greater than 30 minutes Exam Narrative: General: male in no acute respiratory distress who is nontoxic appearing, lying semi recumbent in bed. HEENT: Normocephalic. Atraumatic. Extraocular movement intact. Sclera clear and anicteric. No facial asymmetry. Neck: Neck was supple. No dominant adenopathy, thyromegaly or masses. 2+ carotid upstrokes without bruits. Chest: Lungs are clear to auscultation bilaterally. No wheezes or crackles. CV: Heart was regular rate and rhythm. S1/S2. No murmurs, gallops, or rubs. Abd: Abdomen was soft. Nontender. Nondistended. Positive bowel sounds. No organomegaly or masses. Ext: No clubbing, cyanosis, or edema. 2+ DP pulses bilaterally. Neuro: Patient is alert and oriented x4. Cranial nerves 2-12 are intact. Speech is clear. Const: General: comfortable and no acute distress; No in distress HENMT: Mouth: Yes moist mucous membranes Eyes: General: appearance normal, both eyes and all related structures Sclera: sclerae normal Other: Blindness in right eye Neck: Neck: supple Thyroid: thyroid normal Resp: Effort & Inspection: normal respiratory effort Auscultation: clear to auscultation bilaterally Cardio: Rate: regular rate Rhythm: regular rhythm GI: Auscultation: normal bowel sounds Skin: General skin exam: normal color Neuro: General: gait normal Cranial nerves: Yes Normal hearing present Motor exam (neuro): 5/5 motor strength present throughout, Normal motor muscle tone present throughout and Abnormal motor strength present Extrem: General: normal to inspection Psych: Mental Status: mental status grossly normal Affect: normal affect DS: Data Data Completed and Pending Completed studies during hospitalization: stress test, chest xray Labs on day of discharge: Labs from last 24 hours 03/18/24 03/18/24 03/18/24 11:55 07:35 05:21 WBC 6.8 RBC 4.53 L Hgb 14.0 Hct 42.2 MCV 93.2 MCH 30.9 MCHC 33.2 RDW 13.2 Plt Count 173 MPV 10.9 H Immature Gran % (Auto) 0.3 Neut % (Auto) 70.2 Lymph % (Auto) 18.7 [place] % (Auto) 8.6 H Eos % (Auto) 1.6 Baso % (Auto) 0.6 Lymph # (Auto) 1.28 [place] # (Auto) 0.6 Eos # (Auto) 0.1 Baso # (Auto) 0.0 Abs Immat Gran (auto) 0.02 Absolute Neuts (auto) 4.8 Absolute Nucleated RBC 0.000 Nucleated RBC % 0.0 Sodium 139 Potassium 3.4 Chloride 108 H Carbon Dioxide 28 Anion Gap 3 L BUN 13 Creatinine 1.00 Estim Creat Clear Calc 70 Estimated GFR > 60 Glucose 190 H POC Capillary Glucose 202 H 190 H Calcium 8.9 Total Bilirubin 0.6 AST 20 ALT 15 Alkaline Phosphatase 76 Total Protein 6.0 L Albumin 3.6 03/18/24 03/17/24 03/17/24 04:21 20:07 16:59 WBC RBC Hgb Hct MCV MCH MCHC RDW Plt Count MPV Immature Gran % (Auto) Neut % (Auto) Lymph % (Auto) [place] % (Auto) Eos % (Auto) Baso % (Auto) Lymph # (Auto) [place] # (Auto) Eos # (Auto) Baso # (Auto) Abs Immat Gran (auto) Absolute Neuts (auto) Absolute Nucleated RBC Nucleated RBC % Sodium Potassium Chloride Carbon Dioxide Anion Gap BUN Creatinine Estim Creat Clear Calc Estimated GFR Glucose POC Capillary Glucose 156 H 254 H 182 H Calcium Total Bilirubin AST ALT Alkaline Phosphatase Total Protein Albumin 03/17/24 13:13 WBC RBC Hgb Hct MCV MCH MCHC RDW Plt Count MPV Immature Gran % (Auto) Neut % (Auto) Lymph % (Auto) [place] % (Auto) Eos % (Auto) Baso % (Auto) Lymph # (Auto) [place] # (Auto) Eos # (Auto) Baso # (Auto) Abs Immat Gran (auto) Absolute Neuts (auto) Absolute Nucleated RBC Nucleated RBC % Sodium Potassium Chloride Carbon Dioxide Anion Gap BUN Creatinine Estim Creat Clear Calc Estimated GFR Glucose POC Capillary Glucose 418 H Calcium Total Bilirubin AST ALT Alkaline Phosphatase Total Protein Albumin Discharge Plan Discharge Attending physician on discharge: Markus Quinteros Discharging Clinician: July Georges Patient Disposition: SNF Activity: may shower Diet: diabetic Discharge Instructions: you were admitted for chest pain. Nothing acute was found. Please resume your BP medications. You will need to f/u with PCP for sleep study to see if Cpap is needed for your obstructive sleep apnea. I will add metfromin to you diabetic regimen and you will continue lantus. Take 500 mg -1 tab daily for 1 week, then increase to twice a day. you will need ot have your kidney function rechecked and hga1c in 3 months with [facility] PCP. Please make sure you see eye doctor for yearly eye exam and check your feet daily for any sores or cuts. Please do your best to decrease and stop smoking Patient Instructions: How to Stop Smoking (DC), Pain Management (DC) Stand Alone Forms: General Discharge Information Follow-up/Referrals: Irineo Cruz MD [Primary Care Provider] - 2 Weeks Discharge Medications: New aspirin [Children's Aspirin] 81 mg Tablet,Chewable 81 mg PO DAILY@0800 Qty: 90 0RF hydralazine 10 mg Tablet 10 mg PO Q8HR Qty: 90 0RF metformin 500 mg tablet extended release 24 hr 500 mg PO BID Qty: 90 0RF Rx Instructions: take 500 mg daily for 1 week, then 500 mg twice a day Continued losartan 100 mg tablet 100 mg PO DAILY insulin glargine [Lantus Solostar U-100 Insulin] 100 unit/mL (3 mL) insulin pen 24 unit SUBCUT DAILY neomycin-polymyxin B-dexameth 3.5mg/mL-10,000 unit/mL-0.1 % drops,suspension 1 drp LEFT EYE Q6H 7 Days Qty: 5 0RF (DME) blood sugar diagnostic [OneTouch Ultra Blue Test Strip] Strip See Rx Instructions .ROUTE .MEDSUPPLY Qty: 10 Rx Instructions: As directed (DME) lancets [TRUEplus Lancets] 30 gauge misc See Rx Instructions .ROUTE .MEDSUPPLY Qty: 25 Rx Instructions: As directed aspirin 81 mg tablet,delayed release (DR/EC) 81 mg PO DAILY atorvastatin 40 mg tablet 40 mg PO DAILY Qty: 90 2RF ginkgo biloba 40 mg tablet 40 mg PO BID Rx Instructions: give with meal/snack carvedilol 25 mg tablet 25 mg PO Q12H Rx Instructions: must administer with a meal/food latanoprost 0.005 % Drops 1 drp LEFT EYE DAILY brimonidine 0.2 % drops 1 drp LEFT EYE HS timolol maleate 0.5 % drops 1 drp LEFT EYE DAILY dorzolamide 2 % drops 1 drp LEFT EYE PRN PRN (Reason: Dry Eye(S)) ferrous sulfate [FeroSul] 325 mg (65 mg iron) tablet 325 mg PO DAILY omega 8-[id number]-edi-fish oil [Fish Oil] 1,000 mg (120 mg-180 mg) capsule 1 cap PO BID furosemide 20 mg tablet 20 mg PO QAM Qty: 30 5RF Discontinued hydralazine 10 mg tablet 10 mg PO DAILY Date of admission: 03/16/24 22:58 Primary Care Provider: Irineo Crzu Admitting Provider: Frank Jurado Attending physician on admission: Cortney Acosta Condition: Stable Hospitalist MIPS Heart Failure (Exclusion) Patient has history of Heart Transplant or Left Ventricular Assistive Device?: No IF YES, STOP HERE Heart Failure (Qualifier) Patient has current or prior documentation of LVEF less than or equal to 40%, or mod/servere depressed LVSF?: No IF NO, STOP HERE
[2024-03-18] MEDS: INSULIN ASPART (*BKC) 100 UNITS/ML SUB-Q (12:33)
== END 2024-03-18 16:15 ==
LOC: ANHED 22:47 → ANH2MED 23:24
PROVIDERS: Registered Nurse; Student in an Organized Health Care Education/Training Program; Admitting Provider Internal Medicine; Emergency Provider Emergency Medicine; PCP Emergency Medicine; Visit Provider Student in an Organized Health Care Education/Training Program
DX: R07.9 Chest pain, unspecified (principal); E11.42 Type 2 diabetes mellitus with diabetic polyneuropathy; E11.51 Type 2 diabetes mellitus with diabetic peripheral angiopathy without gangrene; E78.5 Hyperlipidemia, unspecified; G47.33 Obstructive sleep apnea (adult) (pediatric); I10 Essential (primary) hypertension; H40.9 Unspecified glaucoma; F17.210 Nicotine dependence, cigarettes, uncomplicated; H54.61 Unqualified visual loss, right eye, normal vision left eye; E66.9 Obesity, unspecified; Z68.27 Body mass index [BMI] 27.0-27.9, adult; Z59.00 Homelessness unspecified; Z79.82 Long term (current) use of aspirin; Z79.4 Long term (current) use of insulin; Z79.899 Other long term (current) drug therapy; Z98.890 Other specified postprocedural states
CPT/HCPCS: 36415; 71046; 78452; 80053; 82948; 83036; 83690; 84484; 85025; 85610; 85730; 93005; 93017; 93306; 99285; A9270; A9502; G0378; G0379; J1815; J2785